=== PATIENT | male | born 1945 | race Caucasian/White ===

== ENCOUNTER 2021-04-01 22:40 | Inpatient (IN) | payer MEDICARE ==
[2021-04-01] MEDS ORDERED: CYCLOBENZAPRINE 10 MG TAB PO STA (23:10)
[2021-04-01] MEDS ORDERED: SODIUM CHLORIDE 0.9% 500 ML 500 ML IV STA (23:10)
[2021-04-01] MEDS ORDERED: DEXAMETHASONE SOD PHOSPHATE 10 MG/ML 1 ML VIAL IV STA (23:12)
[2021-04-01] MEDS ORDERED: FAMOTIDINE 20 MG/2 ML VIAL IV STA (23:12)
--- NOTE | 2021-04-01 23:20 | ED ---
Neck Injury/Pain HPI - General Chief Complaint: Neck Pain/Injury Stated Complaint: Upper back pain Time Seen by Provider: 04/01/21 22:55 Source: patient, family (), RN notes reviewed Mode of arrival: ambulatory Limitations: no limitations - History of Present Illness Initial Comments: 75-year-old pleasant white male presents to the emergency room with his complaining of 2 days of upper back pain between his shoulder blades. Patient states that each of these it to lifting a heavy box a couple of days ago and is any relief the pain started. Patient denies neck pain or numbness and tingling. Patient rates the pain 6 out of 10 and describes it as a tightness. Was unable to sleep tonight's was brought him to the emergency room. Patient's gave him 3 baby aspirin prior to arrival. Patient denies any nausea vomiting or diarrhea. Patient is afebrile. He received his Covid vaccination in December. Patient has a history of hypertension, low back surgery with a right foot drop. Patient states he has a family history of heart disease, his father of a heart attack at age 52 and his siblings all and within that. Patient states his sister also has serious cardiac conditions. Denies any other medical history. MD Complaint: upper back pain (Between shoulder blades) -: days(s) (2) Place: home Severity scale (1-10): 6 Quality: aching, other (Tight) Consistency: constant Improves With: none Worsens With: none Context: other (Was lifting a heavy box 2 days ago when pain started) Associated Symptoms: none Treatments Prior to Arrival: other (scotch and water) - Related Data Allergies Allergy/AdvReac Type Severity Reaction Status Date / Time No Known Allergies Allergy Verified 04/01/21 22:49 Review of Systems ROS Statement: Those systems with pertinent positive or pertinent negative responses have been documented in the HPI. ROS Other: All systems not noted in ROS Statement are negative. Past Medical History Past Medical History: Hyperlipidemia, Hypertension History of Any Multi-Drug Resistant Organisms: None Reported Past Surgical History: Appendectomy, Back Surgery Past Psychological History: No Psychological Hx Reported Smoking Status: Never smoker Past Alcohol Use History: Occasional Past Drug Use History: None Reported General Exam Limitations: no limitations General appearance: alert, in no apparent distress Head exam: Present: atraumatic, normocephalic, normal inspection Eye exam: Present: PERRL, EOMI, conjunctival injection. Absent: periorbital swelling, periorbital tenderness Pupils: Present: normal accommodation ENT exam: Present: normal exam, normal oropharynx, mucous membranes moist Neck exam: Present: normal inspection, full ROM. Absent: tenderness, meningismus, lymphadenopathy, thyromegaly Respiratory exam: Present: normal lung sounds bilaterally. Absent: respiratory distress, wheezes, rales, rhonchi, stridor, decreased breath sounds Cardiovascular Exam: Present: regular rate, normal rhythm, normal heart sounds. Absent: systolic murmur, diastolic murmur, rubs, gallop, clicks, JVD GI/Abdominal exam: Present: soft, normal bowel sounds. Absent: distended, tenderness, guarding, rebound, rigid Extremities exam: Present: normal inspection, full ROM, normal capillary refill, other (Right foot drop, weak flexion). Absent: tenderness, pedal edema, joint swelling, calf tenderness Back exam: Present: normal inspection. Absent: tenderness, CVA tenderness (R), CVA tenderness (L), paraspinal tenderness, vertebral tenderness Neurological exam: Present: alert, oriented X3, CN II-XII intact Psychiatric exam: Present: normal affect, normal mood Skin exam: Present: warm, dry, intact, normal color. Absent: rash Course Vital Signs 04/01/21 04/02/21 22:44 00:57 Temperature 98.1 F Pulse Rate 75 64 Respiratory 20 16 Rate Blood Pressure 107/55 109/61 O2 Sat by Pulse 99 94 L Oximetry - Reevaluation(s) Reevaluation #1: 04/02/21 00:21 Patient states medication has calmed down and his belching, the upper back pain is slightly relieved. But now patient's complaining of chest discomfort and burning. Patient states father at age 52 of a heart attack and his father's siblings of cardiac problems earlier than 50s. Patient states his sister has serious cardiac problems as well. Patient has not had a cardiac workup in several years. Time: 00:21 Reevaluation #2: 04/02/21 01:20 Patient states had complete relief of chest pain after the first nitroglycerin. Patient states that it also resolved his belching. Time: 01:20 Medical Decision Making - Medical Decision Making Chest x-ray negative, patient did get some relief of the upper back pain and belching however has now developed upper chest pain. Patient will be admitted to rule out acute coronary syndrome. Patient has risk factors of family history of early cardiac , states his father at age 52 and his siblings younger than that. Patient also states his sister is cardiac disease. Patient's gave him 3 baby aspirin prior to arrival. - Lab Data Result diagrams: 04/01/21 23:16 04/01/21 23:16 Lab Results 04/01/21 04/01/21 Range/Units 23:16 23:16 WBC 9.1 (3.8-10.6) k/uL RBC 4.49 (4.30-5.90) m/uL Hgb 14.8 (13.0-17.5) gm/dL Hct 43.8 (39.0-53.0) % MCV 97.6 (80.0-100.0) fL MCH 32.9 (25.0-35.0) pg MCHC 33.7 (31.0-37.0) g/dL RDW 12.7 (11.5-15.5) % Plt Count 203 (150-450) k/uL MPV 6.9 Neutrophils % 51 % Lymphocytes % 38 % Monocytes % 7 % Eosinophils % 1 % Basophils % 0 % Neutrophils # 4.7 (1.3-7.7) k/uL Lymphocytes # 3.5 (1.0-4.8) k/uL Monocytes # 0.6 (0-1.0) k/uL Eosinophils # 0.1 (0-0.7) k/uL Basophils # 0.0 (0-0.2) k/uL Sodium 140 (137-145) mmol/L Potassium 3.9 (3.5-5.1) mmol/L Chloride 107 (98-107) mmol/L Carbon Dioxide 21 L (22-30) mmol/L Anion Gap 12 mmol/L BUN 23 H (9-20) mg/dL Creatinine 0.99 (0.66-1.25) mg/dL Est GFR (CKD-EPI)AfAm 85 (>60 ml/min/1.73 sqM) Est GFR (CKD-EPI)NonAf 74 (>60 ml/min/1.73 sqM) Glucose 134 H (74-99) mg/dL Calcium 9.4 (8.4-10.2) mg/dL Total Bilirubin 0.3 (0.2-1.3) mg/dL AST 32 (17-59) U/L ALT 24 (4-49) U/L Alkaline Phosphatase 53 (38-126) U/L C-Reactive Protein 0.6 (<1.0) mg/dL Total Protein 7.0 (6.3-8.2) g/dL Albumin 4.4 (3.5-5.0) g/dL - EKG Data EKG shows normal: sinus rhythm, intervals (Ventricular rate of 74, WV interval of 0.204, QRS of 0.13, QTC of 0.466; there is a right bundle-branch block) When compared to previous EKG there are: previous EKG unavailable Disposition Clinical Impression: Chest pain at rest Clinical Impression: (Ruled Out): Chest pain due to CAD Disposition: ADMITTED IP TO THIS [facility] Condition: Fair Is patient prescribed a controlled substance at d/c from ED?: No Decision Date: 04/02/21 Decision Time: 01:21
[2021-04-01 23:27] LABS: Basophils % (A) 0 %; Eosinophils # (A) 0.1 k/uL (0-0.7); Eosinophils % (A) 1 %; HCT 43.8 % (39.0-53.0); HGB 14.8 gm/dL (13.0-17.5); Lymphocytes # (A) 3.5 k/uL (1.0-4.8); Lymphocytes % (A) 38 %; MCH 32.9 pg (25.0-35.0); MCHC 33.7 g/dL (31.0-37.0); MCV 97.6 fL (80.0-100.0); Mean Platelet Volume 6.9; Monocytes # (A) 0.6 k/uL (0-1.0); Monocytes % (A) 7 %; Neutrophils # (A) 4.7 k/uL (1.3-7.7); Neutrophils % (A) 51 %; Platelet Count 203 k/uL (150-450); RBC 4.49 m/uL (4.30-5.90); RDW 12.7 % (11.5-15.5); WBC 9.1 k/uL (3.8-10.6)
[2021-04-01 23:40] LABS: Albumin 4.4 g/dL (3.5-5.0); C Reactive Protein 0.6 mg/dL (<1.0); Calcium 9.4 mg/dL (8.4-10.2); Potassium 3.9 mmol/L (3.5-5.1); Total Bilirubin 0.3 mg/dL (0.2-1.3)
--- NOTE | 2021-04-02 00:03 | XR ---
EXAMINATION TYPE: XR chest 2V DATE OF EXAM: 04/01/2021 COMPARISON: NONE HISTORY: Pain TECHNIQUE: 2 views FINDINGS: Heart and mediastinum are normal. Lungs are clear of infiltrate. There are chest leads. Bon y thorax is intact. There are no hilar masses. IMPRESSION: Normal chest.
[2021-04-02] MEDS ORDERED: NALOXONE 0.4 MG/ML 1 ML VIAL IV PRN (00:33)
[2021-04-02] MEDS ORDERED: ACETAMINOPHEN TAB 325 MG TAB PO PRN (00:33)
[2021-04-02] MEDS ORDERED: IBUPROFEN 400 MG TAB PO PRN (00:33)
[2021-04-02] MEDS: NITROGLYCERIN SL TABS 0.4 MG TAB SUBLINGUAL PRN ×3 (00:45→06:21)
[2021-04-02] MEDS ORDERED: HEPARIN SOD,PORK IN 0.45% NACL 25,000 UNIT in 0.45% NACL 1 250ML.BAG IV ONE (04:46)
[2021-04-02] MEDS ORDERED: NITROGLYCERIN OINT 1 INCH/GM PACKET TOPICAL STA (04:53)
[2021-04-02] MEDS ORDERED: HEPARIN SOD,PORK IN 0.45% NACL 25,000 UNIT in 0.45% NACL 1 250ML.BAG IV STA (05:12)
[2021-04-02] MEDS: SODIUM CHLORIDE 0.9% 1,000 ML IV SCH ×2 (05:13→14:54)
[2021-04-02] MEDS ORDERED: HEPARIN SODIUM 1,000 UN/ML (10ML VL) IV ONE (05:23)
[2021-04-02] MEDS ORDERED: HEPARIN SODIUM 1,000 UN/ML (10ML VL) IV PRN (05:23)
[2021-04-02] MEDS ORDERED: HEPARIN SOD,PORK IN 0.45% NACL 25,000 UNIT in 0.45% NACL 1 250ML.BAG IV SCH (05:30)
[2021-04-02 05:52] LABS: INR 1.2 (<1.2); Prothrombin Time 12.9 sec (9.0-12.0)
[2021-04-02 06:00] LABS: Partial Thromboplastin Time 17.9 sec (22.0-30.0)
[2021-04-02] MEDS ORDERED: fentaNYL (PF) 50 MCG/ML 2 ML AMP ONE (07:05)
[2021-04-02] MEDS ORDERED: IV FLUID CONTINUATION 900 ML IV ONE (07:06)
[2021-04-02] MEDS ORDERED: ASPIRIN 81 MG PO ONE (07:10)
[2021-04-02] MEDS ORDERED: ASPIRIN 81 MG ONE (07:11)
[2021-04-02] MEDS ORDERED: fentaNYL (PF) 50 MCG/ML 2 ML AMP IVP ONE (07:11)
[2021-04-02] MEDS ORDERED: MIDAZOLAM 2 MG/2 ML VIAL IVP ONE (07:11)
[2021-04-02] MEDS ORDERED: LIDOCAINE 1% INJ 10MG/ML (20 ML MDV) SQ ONE (07:12)
[2021-04-02] MEDS ORDERED: FUROSEMIDE 10 MG/ML 4 ML VIAL ONE (07:24)
[2021-04-02] MEDS ORDERED: FUROSEMIDE 10 MG/ML 4 ML VIAL IVP ONE (07:26)
[2021-04-02] MEDS ORDERED: CLOPIDOGREL 75 MG TAB ONE (07:32)
[2021-04-02] MEDS ORDERED: BIVALIRUDIN BOLUS 250 MG/50 ML IV ONE (07:32)
[2021-04-02] MEDS ORDERED: BIVALIRUDIN 250 MG in SODIUM CHLORIDE 0.9% 50 ML IV ONE (07:33)
[2021-04-02] MEDS ORDERED: CLOPIDOGREL 75 MG TAB PO ONE ×2 (07:33)
[2021-04-02] MEDS ORDERED: niCARdipine 25 MG/10 ML VIAL ONE (07:35)
[2021-04-02] MEDS: NITROGLYCERIN 1000MCG/10ML SYRINGE INTRACORON ONE ×2 (07:41→08:00)
[2021-04-02] MEDS: niCARdipine Syringe (1,000 mcg/10 mL) INTRACORON ONE ×4 (07:41→08:00)
[2021-04-02] MEDS ORDERED: IOPAMIDOL-370 125ML BTL INJ ONE (07:45)
[2021-04-02] MEDS ORDERED: IOPAMIDOL-370 100ML BTL INJ ONE (08:06)
[2021-04-02] MEDS ORDERED: ZOLPIDEM 5 MG TAB PO PRN (08:08)
[2021-04-02] MEDS ORDERED: RX INFO: IV CONTRAST WAS GIVEN 1 EACH MISC MISCELLANE PRN (08:08)
[2021-04-02] MEDS ORDERED: NITROGLYCERIN SL TABS 0.4 MG TAB SUBLINGUAL PRN (08:08)
[2021-04-02] MEDS ORDERED: MAG HYDROX/AL HYDROX/SIMETH 30 ML CUP PO PRN (08:08)
[2021-04-02] MEDS ORDERED: ATROPINE SULFATE 0.1 MG/ML 10ML SYRINGE IV PRN (08:08)
[2021-04-02] MEDS ORDERED: SODIUM CHLORIDE 0.9% 1,000 ML IV SCH (08:15)
--- NOTE | 2021-04-02 08:23 | CONS ---
CONSULTATION CHIEF COMPLAINT: Chest pain. This is a 75-year-old gentleman with history of hypertension and dyslipidemia who presented to the hospital complaining of chest pain. He had the first episode of chest discomfort on that he describes as moderate precordial chest pressure and subsequently the pain resolved on Friday and had more chest pain on Friday, Friday due to he came to the hospital around 11 o'clock last night. He was admitted with diagnosis of chest pain. Rule out GA. His first troponin was slightly elevated at 0.04. I was called about the patient by ER nurse around 5 o'clock this morning when the second troponin came back elevated at 0.9 and he had more chest pain. The patient was not on any treatment at this time. I started him on IV heparin, nitrates, beta danielle. Subsequently, patient was transferred to floor, developed more chest discomfort and had ST-elevation on en ekg done on the floor around 6 am due to which he was advised to undergo emergent cardiac catheterization. His first EKG showed sinus rhythm with right bundle branch block. EKG from this morning shows right bundle branch block with ST- segment elevation in V2, V3. The patient at the time of my evaluation is chest pain free. His pain resolved following 2 sublingual nitroglycerin. PAST MEDICAL HISTORY: Significant for hypertension and dyslipidemia. CURRENT MEDICATIONS: Include Procardia 50 daily and Lipitor 10 daily. ALLERGIES: There are no known drug allergies. FAMILY HISTORY: Negative for premature coronary artery disease. SOCIAL HISTORY: Negative for smoking, EtOH abuse, or drug abuse. REVIEW OF SYSTEMS: HEENT is unremarkable. CARDIAC: As described above. RESPIRATORY: As described above. GI: Negative. GENITOURINARY: Negative. ALLERGY/IMMUNOLOGY: Negative. SKIN: Negative. MUSCULOSKELETAL: Negative. ENDOCRINE: Negative. DERM: Negative. CONSTITUTIONAL: Negative. ONCOLOGICAL: Negative. Rest of the system review is not relevant. PHYSICAL EXAMINATION: Heart rate is 90 beats per minute. Blood pressure is 130/70. Respiratory is 18. There is no jugular venous distention. Carotid upstroke is diminished. There is no bruit. Chest exam reveals good air entry bilaterally. Heart exam reveals first and second heart sounds. No gallop. Abdomen is soft. Examination of extremities did not reveal any edema. O2 saturation is 96% on 2 L. LABS: Labs show that the troponin is 0.9, creatinine is 0.9, hemoglobin is 14.8. ASSESSMENT: Acute anterior wall myocardial infarction. PLAN: Patient will undergo emergent cardiac catheterization. MMODL / IJN: [id number] / MTDD
--- NOTE | 2021-04-02 08:26 | CC ---
CARDIAC CATHETERIZATION REPORT INDICATION: Acute anterior wall myocardial infarction. After obtaining informed consent, left heart catheterization and coronary angiogram were performed via the right femoral artery using standard Ailin catheters. Patient tolerated the procedure well without any obvious immediate complications. Patient received moderate conscious sedation. Total sedation time was 16 minutes. FINDINGS: 1. HEMODYNAMICS: Left ventricular end-diastolic pressure is 24 mm. There is no significant gradient across the aortic valve. 2. LEFT VENTRICULOGRAM: Left ventriculogram is not performed. 3. ANGIOGRAPHIC DATA: Left Main Coronary Artery: Left main coronary artery is a normal-sized vessel and is free of stenosis. Divides into left anterior descending coronary artery and circumflex coronary artery. LAD appears totally occluded in the proximal part. Circumflex coronary artery and its branches are free of significant stenosis. Right coronary artery is a large dominant vessel, shows an atherosclerotic plaque in the proximal portion. CONCLUSIONS: Occluded proximal LAD. PLAN: Patient will undergo angioplasty of the same. MMODL / IJN: [id number] /
--- NOTE | 2021-04-02 08:32 | PTCA ---
PERCUTANEOUSTRANS CORORONARY ANGIOGRAPHY DATE OF SERVICE: April 02, 2021. PERFORMING PHYSICIAN: Luther Stark MD. PROCEDURE PERFORMED: 1. Successful stenting of the proximal left anterior descending artery using a 3.0 x 23 mm Xience drug-eluting stent which was post-dilated using 3.5 mm NC balloon with reduction of stenosis from 100% to 0% with ANNALISE 2 flow. 2. Successful stenting of the mid left anterior descending artery using 2.75 x 12 mm Xience drug-eluting stent with reduction of stenosis from 70% to 0% with ANNALISE 2 flow. 3. Selective right common femoral artery angiogram. 4. Aspiration thrombectomy from the left anterior descending artery. INDICATION: This is a 75-year-old gentleman who presented to the hospital with chest discomfort and was seen by Dr. Orellana. He ruled in for acute coronary syndrome. A heart catheterization was performed by Dr. Orellana and revealed total occlusion of the LAD. Because of that, PCI was advised. APPROACH: Right common femoral artery. COMPLICATION: None. LEVEL OF SEDATION: Moderate with sedation length of 35 minutes. PROCEDURE DESCRIPTION: Please refer to diagnostic heart catheterization was performed by Dr. Orellana earlier today. Anticoagulation was achieved with Angiomax with bolus and drip. After that, I did engage the left main using JL4 guide. I did wire the LAD and crossed the lesion using a run-through wire. After that aspiration thrombectomy was performed with extraction of significant red thrombus. After that I did balloon angioplasty using 2.5 x 15 mm balloon before I deployed 3.0 x 23 mm Xience drug-eluting stent. The following angiogram showed a lesion distal to the stented segment right on the stent edge and decided to cover that lesion, so I did stent that using 2.75 x 12 mm another Xience drug-eluting stent with about 2 mm overlap between the 2 stents. I post-dilated the stents proximally using 3.5 mm NC balloon. The final angiogram showed good angiographic results with reduction of stenosis from 100% to 0% with ANNALISE 2 flow and no myocardial blush seen. I gave multiple injection of nicardipine. After that I did selective right common femoral artery angiogram before the procedure was completed. POSTPROCEDURE MANAGEMENT: 1. Dual anti-platelet therapy. 2. Aggressive cholesterol control. 3. Risk factor modifications. 4. Follow up with the patient. MMODL / IJN: [id number] /
[2021-04-02 14:01] VITALS: BMI 31.6
[2021-04-02] MEDS: METOPROLOL TARTRATE 25 MG TAB PO SCH (14:54)
--- NOTE | 2021-04-02 15:58 | P.HPIM ---
History of Present Illness H&P Date: 04/02/21 Chief Complaint: Chest pain History of presenting complaint: This is a 75-year-old patient who follows with Dr. Hanks. For about 6 days patient been having progressive chest pain. Started on last Friday with some mild pain across the shoulder blade. Then on Fridays it was much worse. Does not associated dizziness lightheadedness perspiration tiredness and nausea. P atient is having significant amount of belching. Symptoms became much more significant yesterday and finally landed the patient coming to the ER. Patient does get leg cramps. 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 In the ER patient ruled in for an acute MD, to go to the cardiac dental laboratory assistant and patient got 2 stents to the LAD. Patient's at the bedside. Review of systems: GEN.: Tired EYES: None HEENT: None NECK: None RESPIRATORY: None CARDIOVASCULAR: As above GASTROINTESTINAL: None GENITOURINARY: None MUSCULOSKELETAL: None LYMPHATICS: None HEMATOLOGICAL: None PSYCHIATRY: None NEUROLOGICAL: None. 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 Family history: Myocardial infarction Physical examination: VITAL SIGNS: 99.1, 90, 18, 140/62, 97% on room air GENERAL: BMI 31.6, sitting up in bed, awake. EYES: Pupils equal. Conjunctiva normal. HEENT: External appearance of nose and ears normal, oral cavity grossly normal. NECK: JVD not raised; masses not palpable. HEART: First and second heart sounds are normal; no edema. LUNGS: Respiratory rate normal; clear to auscultation. ABDOMEN: Soft, nontender, liver spleen not palpable, no masses palpable. PSYCH: Alert and oriented x3; mood and affect normal. NEUROLOGICAL: Cranial nerves grossly intact; no facial asymmetry, power and sensation grossly intact. LYMPHATICS: No lymph nodes palpable in the axilla and neck INVESTIGATIONS, reviewed in the clinical context: WBC 9.1 hemoglobin 14.8 platelets 203 potassium 3.9 creatinine 0.99 Troponin I 0.040, 0.917, 8.0 Coronavirus [PCR]-not detected EKG tracing personally reviewed by me-normal sinus rhythm, right bundle branch block Chest x-ray film personally reviewed by me-no infiltrates Assessment and plan: -Acute non-Q wave myocardial infarction Patient was initially started on aspirin, IV heparin and Nitropaste -Coronary artery disease, with stent to the proximal LAD, mid LAD and aspiration thrombectomy from the left LAD Patient on aspirin, Lipitor, Plavix, Lopressor -Essential hypertension On Lopressor -Hyperlipidemia On Lipitor. Pending lipid panel -IV heparin monitoring Now discontinued -Obesity BMI 31.6 Weight loss measures, follow-up with PCP Care was discussed with the patient and at the bedside. Follow with cardiology Given the complexity and severity of patient's condition expect the patient to be in the hospital at least for 2 overnights Past Medical History Past Medical History: Hyperlipidemia, Hypertension History of Any Multi-Drug Resistant Organisms: None Reported Past Surgical History: Appendectomy, Back Surgery Past Psychological History: No Psychological Hx Reported Smoking Status: Never smoker Past Alcohol Use History: Occasional Past Drug Use History: None Reported - Past Family History Father Family Medical History: Myocardial Infarction (MD) Medications and Allergies Home Medications Medication Instructions Recorded Confirmed Type Atorvastatin [Lipitor] 10 mg PO DAILY 04/02/21 04/02/21 History Cholecalciferol [Vitamin D3 (25 50 mcg PO DAILY 04/02/21 04/02/21 History Mcg = 1000 Iu)] Cider Vinegar [Apple Cider Vinegar] 600 mg PO DAILY 04/02/21 04/02/21 History NIFEdipine XL [Procardia Xl] 30 mg PO DAILY 04/02/21 04/02/21 History Allergies Allergy/AdvReac Type Severity Reaction Status Date / Time No Known Allergies Allergy Verified 04/02/21 06:55 Physical Exam Vitals: Vital Signs Temp Pulse Pulse Resp BP BP Pulse Ox 04/02/21 15:00 98.6 F 90 16 132/78 95 04/02/21 11:54 98.8 F 93 22 116/69 93 L 04/02/21 10:54 90 129/71 93 L 04/02/21 09:54 88 22 134/72 95 04/02/21 09:24 95 139/73 04/02/21 08:54 93 22 120/64 95 04/02/21 08:24 99.1 F 90 18 140/62 97 04/02/21 05:13 93 20 130/72 96 04/02/21 04:24 93 18 118/73 98 04/02/21 00:57 64 16 109/61 94 L 04/01/21 22:44 98.1 F 75 20 107/55 99 Intake and Output 04/02/21 04/02/21 04/02/21 06:59 14:59 22:59 Intake Total 525 Output Total 450 Balance 75 Intake: IV 285 Oral 240 Output: Urine 450 Other: Weight 86.183 kg 86.183 kg Results CBC & Chem 7: 04/01/21 23:16 04/01/21 23:16 Labs: Abnormal Lab Results - Last 24 Hours (Table) 04/01/21 04/02/21 04/02/21 Range/Units 23:16 00:24 03:08 PT (9.0-12.0) sec INR (<1.2) APTT (22.0-30.0) sec Carbon Dioxide 21 L (22-30) mmol/L BUN 23 H (9-20) mg/dL Glucose 134 H (74-99) mg/dL Troponin I 0.040 H* 0.917 H* (0.000-0.034) ng/mL 04/02/21 04/02/21 Range/Units 04:55 06:31 PT 12.9 H (9.0-12.0) sec INR 1.2 H (<1.2) APTT 17.9 L (22.0-30.0) sec Carbon Dioxide (22-30) mmol/L BUN (9-20) mg/dL Glucose (74-99) mg/dL Troponin I 8.040 H* (0.000-0.034) ng/mL Thrombosis Risk Factor Assmnt - Choose All That Apply Each Factor Represents 1 point: Obesity (BMI >25), Swollen legs (current) Each Risk Factor Represents 3 Points: Age 75 years or older Thrombosis Risk Factor Assessment Total Risk Factor Score: 5 Thrombosis Risk Factor Assessment Level: High Risk
[2021-04-02] MEDS: ATORVASTATIN 80 MG TAB PO SCH (20:06)
[2021-04-03 08:03] LABS: Basophils % (A) 0 %; Eosinophils % (A) 0 %; HCT 41.9 % (39.0-53.0); HGB 14.4 gm/dL (13.0-17.5); Lymphocytes # (A) 1.9 k/uL (1.0-4.8); Lymphocytes % (A) 12 %; MCH 33.8 pg (25.0-35.0); MCHC 34.5 g/dL (31.0-37.0); Mean Platelet Volume 7.2; Monocytes # (A) 0.8 k/uL (0-1.0); Monocytes % (A) 5 %; Neutrophils % (A) 82 %; Platelet Count 200 k/uL (150-450); RBC 4.27 m/uL (4.30-5.90); WBC 15.8 k/uL (3.8-10.6)
[2021-04-03 08:09] LABS: African American GFR (CKD) >90 (>60 ml/min/1.73 sqM); Non-African American GFR(CKD) 83 (>60 ml/min/1.73 sqM)
[2021-04-03 08:22] LABS: Prothrombin Time 10.8 sec (9.0-12.0)
[2021-04-03] MEDS: METOPROLOL TARTRATE 25 MG TAB PO SCH (08:37)
[2021-04-03] MEDS: CLOPIDOGREL 75 MG TAB PO SCH (08:38)
[2021-04-03] MEDS: ASPIRIN 81 MG PO SCH (08:38)
[2021-04-03] MEDS: SODIUM CHLORIDE 0.9% 1,000 ML IV SCH (11:22)
--- NOTE | 2021-04-03 12:29 | P.PN ---
Subjective Progress Note Date: 04/03/21 HISTORY OF PRESENT ILLNESS: This is a 75-year-old male with a history of hypertension and hyperlipidemia who presented to the emergency room due to chest pain. Patient underwent cardiac catheterization yesterday with PCI to the LAD 2. Patient examined this morning on the selective care unit. Patient is sitting up in the chair. He denies shortness of breath. He denies chest pain or pressure. Echocardiogram is currently pending. Blood pressure 126/74. Heart rate in the 80s. He is afebrile. He is on room air with oxygen saturations greater than 92%. PHYSICAL EXAM: VITAL SIGNS: Reviewed. GENERAL: Well-developed in no acute distress. NECK: Supple. No JVD or thyromegaly LUNGS: Respirations even and unlabored. Lungs essentially clear to auscultation bilaterally. HEART: Regular rate and rhythm. S1 and S2 heard. EXTREMITIES: Normal range of motion. No clubbing or cyanosis. Peripheral pulses intact. No lower extremity edema. Groin soft with no hematoma. ASSESSMENT: STEMI, s/p PCI to LAD x 2 Hypertension Hyperlipidemia PLAN: 2D echo ordered. Await results. Continue current cardiac medications including aspirin, plavix, metoprolol, and lipitor Further recommendations pending patient course Nurse practitioner note has been reviewed by physician. Signing provider agrees with the documented findings, assessment, and plan of care. Objective - Vital Signs Vital signs: Vital Signs Temp 98.9 F 04/03/21 08:00 Pulse 82 04/03/21 08:00 Resp 18 04/03/21 08:00 BP 126/74 04/03/21 08:00 Pulse Ox 97 04/03/21 08:00 Intake & Output 04/02/21 04/03/21 04/03/21 18:59 06:59 18:59 Intake Total 625 960 240 Output Total 1050 Balance -425 960 240 Weight 86.183 kg 87.9 kg Intake: IV 285 Oral 340 960 240 Output: Urine 1050 Other: Voiding Method Toilet Urinal # Voids 1 2 - Labs CBC & Chem 7: 04/03/21 07:09 04/03/21 07:09 Labs: Abnormal Lab Results - Last 24 Hours (Table) 04/03/21 Range/Units 07:09 WBC 15.8 H (3.8-10.6) k/uL RBC 4.27 L (4.30-5.90) m/uL Neutrophils # 13.0 H (1.3-7.7) k/uL
[2021-04-03 15:00] LABS: Chol/HDL Ratio 2.61; Cholesterol 162 mg/dL (0-200); LDL Cholesterol,Calculated 79.4 mg/dL (0.0-131.0)
--- NOTE | 2021-04-03 15:46 | P.PN ---
Progress Note - Text Progress Note Date: 04/03/21 Chief Complaint: Chest pain History of presenting complaint: This is a 75-year-old patient who follows with Dr. Hanks. For about 6 days patient been having progressive chest pain. Started on last Friday with some mild pain across the shoulder blade. Then on Fridays it was much worse. Does not associated dizziness lightheadedness perspiration tiredness and nausea. Patient is having significant amount of belching. Symptoms became much more significant yesterday and finally landed the patient coming to the ER. Patient does get leg cramps. 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 In the ER patient ruled in for an acute HI, to go to the cardiac specialist employee labor relations and patient got 2 stents to the LAD. Today: Sitting up in a chair. Has been up to the bathroom. No guarding symptoms. Breathing better. No chest pain. Feeling better. Review of systems: Was done for constitutional, cardiovascular, GI, pulmonary. relevant finding as above Active Medications Acetaminophen (Acetaminophen Tab 325 Mg Tab) 650 mg PO Q6HR PRN PRN Reason: Mild Pain or Fever > 100.5 Al Hydroxide/Mg Hydroxide (Mag Hydrox/Al Hydrox/Simeth 30 Ml Cup) 30 ml PO Q4HR PRN PRN Reason: Heartburn Last Admin: 04/02/21 20:06 Dose: 30 ml Documented by: Aspirin (Aspirin 81 Mg) 81 mg PO DAILY [facility] Last Admin: 04/03/21 08:38 Dose: 81 mg Documented by: Atorvastatin Calcium (Atorvastatin 80 Mg Tab) 80 mg PO HS [facility] Last Admin: 04/02/21 20:06 Dose: 80 mg Documented by: Atropine Sulfate (Atropine Sulfate 0.1 Mg/Ml 10ml Syringe) 0.5 mg IV ONCE PRN PRN Reason: Symptomatic Bradycardia Clopidogrel Bisulfate (Clopidogrel 75 Mg Tab) 75 mg PO DAILY [facility] Last Admin: 04/03/21 08:38 Dose: 75 mg Documented by: Sodium Chloride (Saline 0.9%) 1,000 mls @ 75 mls/hr IV .[id number] [facility] Last Admin: 04/03/21 11:22 Dose: Not Given Documented by: Metoprolol Tartrate (Metoprolol Tartrate 25 Mg Tab) 25 mg PO DAILY [facility] Last Admin: 04/03/21 08:37 Dose: 25 mg Documented by: Miscellaneous Information (Rx Info: Iv Contrast Was Given 1 Each Misc) 1 each MISCELLANE DAILY PRN PRN Reason: Per Protocol Stop: 04/04/21 08:09 Naloxone HCl (Naloxone 0.4 Mg/Ml 1 Ml Vial) 0.2 mg IV Q2M PRN PRN Reason: Opioid Reversal Nitroglycerin (Nitroglycerin Sl Tabs 0.4 Mg Tab) 0.4 mg SUBLINGUAL Q5M PRN PRN Reason: Chest Pain Last Admin: 04/02/21 06:21 Dose: 0.4 mg Documented by: Zolpidem Tartrate (Zolpidem 5 Mg Tab) 5 mg PO HS PRN PRN Reason: Insomnia 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 Family history: Myocardial infarction Physical examination: VITAL SIGNS: 98.9, 80, 18, 109/66, 95% room air GENERAL: Sitting up in a chair, comfortable EYES: Pupils equal. Conjunctiva normal. HEENT: External appearance of nose and ears normal, oral cavity grossly normal. NECK: JVD not raised; masses not palpable. HEART: First and second heart sounds are normal; no edema. LUNGS: Respiratory rate normal; clear to auscultation. ABDOMEN: Soft, nontender, liver spleen not palpable, no masses palpable. PSYCH: Alert and oriented x3; mood and affect normal. INVESTIGATIONS, reviewed in the clinical context: April 03: WBC 15.8 hemoglobin 14.4 platelets 200 LDL 79 WBC 9.1 hemoglobin 14.8 platelets 203 potassium 3.9 creatinine 0.99 Troponin I 0.040, 0.917, 8.0 Coronavirus [PCR]-not detected EKG tracing personally reviewed by me-normal sinus rhythm, right bundle branch block Chest x-ray film personally reviewed by me-no infiltrates Assessment and plan: -Acute non-Q wave myocardial infarction Patient was initially started on aspirin, IV heparin and Nitropaste -Coronary artery disease, with stent to the proximal LAD, mid LAD and aspiration thrombectomy from the left LAD Patient on aspirin, Lipitor, Plavix, Lopressor -Essential hypertension On Lopressor -Hyperlipidemia On Lipitor. Pending lipid panel -IV heparin monitoring Now discontinued -Obesity BMI 31.6 Weight loss measures, follow-up with PCP Doing better. Encourage increase activity. DC IV fluids. Add Zestril 2.5 mg daily at bedtime. Hopefully DC tomorrow
[2021-04-03] MEDS: ATORVASTATIN 80 MG TAB PO SCH (19:59)
[2021-04-03 21:04] VITALS: RESP 18
[2021-04-04 08:29] VITALS: BP 106/63; PULSE 82; TEMP 98.5
[2021-04-04] MEDS: CLOPIDOGREL 75 MG TAB PO SCH (08:30)
[2021-04-04] MEDS: ASPIRIN 81 MG PO SCH (08:30)
[2021-04-04] MEDS ORDERED: METOPROLOL TARTRATE 12.5 MG TAB PO SCH (09:00)
--- NOTE | 2021-04-04 10:25 | ECHOF ---
Referral Reason:CA MEASUREMENTS -------- HEIGHT: 165.1 cm WEIGHT: 86.2 kg BP: 116/69 IVSd: 1.3 cm (0.6 - 1.1) LVIDd: 4.6 cm (3.9 - 5.3) LVPWd: 1.3 cm (0.6 - 1.1) EDV(Teich): 96 ml IVSs: 1.7 cm LVIDs: 3.7 cm LVPWs: 1.6 cm %IVS Thck: 32 % ESV(Teich): 60 ml EF(Teich): 38 % %FS: 18 % SV(Teich): 36 ml LA Diam: 3.5 cm (2.7 - 3.8) RVIDd: 3.1 cm (< 3.3) LALs A4C: 4.9 cm LAAs A4C: 13.7 cm LAESV A-L A4C: 33 ml LAESV MOD A4C: 31 ml LALs A2C: 5.0 cm LAAs A2C: 12.5 cm LAESV A-L A2C: 26 ml LAESV MOD A2C: 25 ml LAESV(A-L): 30 ml LAESV Index (A-L): 15.31 ml/m Ao Diam: 3.3 cm (2.0 - 3.7) AV Cusp: 1.8 cm (1.5 - 2.6) EPSS: 1.6 cm MV E Antonio: 0.77 m/s MV DecT: 189 ms MV Dec Hernando: 4.1 m/s MV A Antonio: 1.01 m/s MV E/A Ratio: 0.77 MV PHT: 55 ms AV Vmax: 1.50 m/s AV maxP.98 mmHg TR Vmax: 2.81 m/s TR maxP.55 mmHg RAP: 5.00 mmHg RVSP: 36.55 mmHg MV EF SLOPE: 32.60 mm/s (70 - 150) MV EXCURSION: 8.33 mm (> 18.000) FINDINGS -------- Sinus rhythm. This was a technically difficult study with suboptimal apical views. The left ventricular size is normal. There is mild concentric left ventricular hypertrophy. Overa ll left ventricular systolic function is moderate-severely impaired with, an EF between 30 - 35 %. Apical anterior LV wall motion is akinetic. Apical lateral LV wall motion is akinetic. Apical i nferior LV wall motion is akinetic. Apical septum LV wall motion is akinetic. The right ventricle is normal in size. Normal LA size by volume 22+/-6 ml/m2. The right atrium is normal in size. 3 ml of Lumason was utilized for enhancement of images. Interatrial and interventricular septum intact. There is mild aortic valve sclerosis. Mild mitral regurgitation is present. Mild tricuspid regurgitation present. There is mild pulmonary hypertension. The right ventricular systolic pressure, as measured by Doppler, is 36.55mmHg. The pulmonic valve is normal. The aortic root size is normal. Normal inferior vena cava with normal inspiratory collapse consistent with estimated right atrial pre ssure of 5 mmHg. There is no pericardial effusion. CONCLUSIONS -------- 1. This was a technically difficult study with suboptimal apical views. 2. The left ventricular size is normal. 3. There is mild concentric left ventricular hypertrophy. 4. Overall left ventricular systolic function is moderate-severely impaired with, an EF between 30 - 35 %. 5. Apical anterior LV wall motion is akinetic. 6. Apical lateral LV wall motion is akinetic. 7. Apical inferior LV wall motion is akinetic. 8. Apical septum LV wall motion is akinetic. 9. 3 ml of Lumason was utilized for enhancement of images. 10. There is mild aortic valve sclerosis. 11. Mild mitral regurgitation is present. 12. Mild tricuspid regurgitation present. 13. There is mild pulmonary hypertension. 14. The right ventricular systolic pressure, as measured by Doppler, is 36.55mmHg. 15. There is no pericardial effusion. DAY CARE WORKER: Millie Pires RDCS
--- NOTE | 2021-04-04 10:51 | P.PN ---
Subjective Progress Note Date: 04/04/21 HISTORY OF PRESENT ILLNESS: This is a 75-year-old male with a history of hypertension and hyperlipidemia who presented to the emergency room due to chest pain. Patient underwent cardiac catheterization yesterday with PCI to the LAD 2. Patient examined this morning on the selective care unit. Patient is sitting up in the chair. He denies shortness of breath. He denies chest pain or pressure. Echocardiogram is currently pending. Blood pressure 126/74. Heart rate in the 80s. He is afebrile. He is on room air with oxygen saturations greater than 92%. 04/04/2021 Patient examined this morning at the bedside. Patient denies chest pain or pressure. He denies shortness of breath. Vital signs are stable. Patient is anxious to be discharged home as he has chronic back pain and states the bed and chair are making his back pain worse than normal. Echocardiogram completed revealed ejection fraction 30-35%, mild mitral regurgitation, mild tricuspid regurgitation, and mild pulmonary hypertension. PHYSICAL EXAM: VITAL SIGNS: Reviewed. GENERAL: Well-developed in no acute distress. NECK: Supple. No JVD or thyromegaly LUNGS: Respirations even and unlabored. Lungs essentially clear to auscultation bilaterally. HEART: Regular rate and rhythm. S1 and S2 heard. EXTREMITIES: Normal range of motion. No clubbing or cyanosis. Peripheral pulses intact. No lower extremity edema. Groin soft with no hematoma. ASSESSMENT: STEMI, s/p PCI to LAD x 2 Ischemic cardiomyopathy Hypertension Hyperlipidemia PLAN: Continue current cardiac medications including aspirin, plavix, metoprolol, and lipitor Lisinopril added on to patient's medication regimen. Agreeable to lisinopril due to cardiomyopathy Patient is stable for discharge home today from a cardiac standpoint. He is to follow up on an outpatient basis with Dr. Orellana. Nurse practitioner note has been reviewed by physician. Signing provider agrees with the documented findings, assessment, and plan of care. Objective - Vital Signs Vital signs: Vital Signs Temp 98.5 F 04/04/21 08:26 Pulse 82 04/04/21 08:26 Resp 18 04/04/21 08:26 BP 106/63 04/04/21 08:26 Pulse Ox 95 04/04/21 08:26 Intake & Output 04/03/21 04/04/21 04/04/21 18:59 06:59 18:59 Intake Total 440 960 236 Balance 440 960 236 Weight 89 kg Intake: Oral 440 960 236 Other: Voiding Method Toilet Urinal # Voids 2 1 - Labs CBC & Chem 7: 04/03/21 07:09 04/03/21 07:09 Labs: Abnormal Lab Results - Last 24 Hours (Table) 04/03/21 Range/Units 07:09 HDL Cholesterol 62.0 H (40.0-60.0) mg/dL
--- NOTE | 2021-04-05 21:14 | P.DS ---
Providers Date of admission: 04/02/21 10:17 Expected date of discharge: 04/04/21 Attending physician: Julian Boykin Consults: 04/02/21 00:35 Consult Physician Urgent Consulting Provider: Luther Stark Consult Reason/Comments: chest pain r/o ACS Do you want consulting provider notified?: Yes 04/02/21 08:09 Consult Physician Routine Consulting Provider: Cardiology Lizzy Consult Reason/Comments: Post Interventional patient Do you want consulting provider notified?: Already Contacted Primary care physician: [facility] Course: Chief Complaint: Chest pain History of presenting complaint: This is a 75-year-old patient who follows with Dr. Hanks. For about 6 days patient been having progressive chest pain. Started on last Friday with some mild pain across the shoulder blade. Then on Fridays it was much worse. Does not associated dizziness lightheadedness perspiration tiredness and nausea. Patient is having significant amount of belching. Symptoms became much more significant yesterday and finally landed the patient coming to the ER. Patient does get leg cramps. 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 In the ER patient ruled in for an acute DC, to go to the cardiac laboratory phlebotomist and patient got 2 stents to the LAD. Today: Up and about. No cardiac symptoms. Feeling well. Cleared by cardiac G for discharge. Questions answered Consultation: Cardiology associates. 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 Family history: Myocardial infarction Physical examination: VITAL SIGNS: 98.5, 82, 18, 106/63, 95% room air GENERAL: Sitting up in a chair, comfortable EYES: Pupils equal. Conjunctiva normal. HEENT: External appearance of nose and ears normal, oral cavity grossly normal. NECK: JVD not raised; masses not palpable. HEART: First and second heart sounds are normal; no edema. LUNGS: Respiratory rate normal; clear to auscultation. ABDOMEN: Soft, nontender, liver spleen not palpable, no masses palpable. PSYCH: Alert and oriented x3; mood and affect normal. INVESTIGATIONS, reviewed in the clinical context: April 03: WBC 15.8 hemoglobin 14.4 platelets 200 LDL 79 WBC 9.1 hemoglobin 14.8 platelets 203 potassium 3.9 creatinine 0.99 Troponin I 0.040, 0.917, 8.0 Coronavirus [PCR]-not detected EKG tracing personally reviewed by me-normal sinus rhythm, right bundle branch block Chest x-ray film personally reviewed by me-no infiltrates Assessment and plan: -Acute non-Q wave myocardial infarction Patient was initially started on aspirin, IV heparin and Nitropaste -Coronary artery disease, with stent to the proximal LAD, mid LAD and aspiration thrombectomy from the left LAD Patient on aspirin, Lipitor, Plavix, Lopressor -Essential hypertension On Lopressor -Hyperlipidemia On Lipitor. Pending lipid panel -IV heparin monitoring Now discontinued -Obesity BMI 31.6 Weight loss measures, follow-up with PCP Disposition: Home Patient Condition at Discharge: Fair Plan - Discharge Summary New Discharge Prescriptions: New Atorvastatin [Lipitor] 80 mg PO HS #90 tab Metoprolol Tartrate [Lopressor] 12.5 mg PO BID #180 tab Clopidogrel [Plavix] 75 mg PO DAILY #90 tab lisinopriL [Zestril] 2.5 mg PO HS #90 tab Aspirin 81 mg PO DAILY #90 chew Nitroglycerin Sl Tabs [Nitrostat] 0.4 mg SUBLINGUAL Q5M PRN #1 bottle PRN Reason: Chest Pain Continue Cider Vinegar [Apple Cider Vinegar] 600 mg PO DAILY Cholecalciferol [Vitamin D3 (25 Mcg = 1000 Iu)] 50 mcg PO DAILY Discontinued Atorvastatin [Lipitor] 10 mg PO DAILY NIFEdipine XL [Procardia Xl] 30 mg PO DAILY Discharge Medication List Cholecalciferol [Vitamin D3 (25 Mcg = 1000 Iu)] 50 mcg PO DAILY 04/02/21 [History] Cider Vinegar [Apple Cider Vinegar] 600 mg PO DAILY 04/02/21 [History] Aspirin 81 mg PO DAILY #90 chew 04/04/21 [Rx] Atorvastatin [Lipitor] 80 mg PO HS #90 tab 04/04/21 [Rx] Clopidogrel [Plavix] 75 mg PO DAILY #90 tab 04/04/21 [Rx] Metoprolol Tartrate [Lopressor] 12.5 mg PO BID #180 tab 04/04/21 [Rx] Nitroglycerin Sl Tabs [Nitrostat] 0.4 mg SUBLINGUAL Q5M PRN #1 bottle 04/04/21 [Rx] lisinopriL [Zestril] 2.5 mg PO HS #90 tab 04/04/21 [Rx] Follow up Appointment(s)/Referral(s): Flex Hanks DO [Primary Care Provider] - 04/06/21 2:20 pm Refugio Orellana MD [STAFF PHYSICIAN] - 1 Week (office will call with follow up appointment date and time within 1 week) Patient Instructions/Handouts: Left Heart Catheterization (DC) Discharge Disposition: HOME SELF-CARE
== END 2021-04-04 12:56 | disposition home or self-care (01) | DRG 247 ==
LOC: EC 22:40 → 6NMEDSUR 04-02 00:30 → 3SCARD 04-02 05:07 → OBSVTOIN 04-02 10:17
PROVIDERS: ADMIT Hospitalist; ATTEND Hospitalist
PROC: 02C03ZZ Extirpation of Matter from Coronary Artery, One Artery, Percutaneous Approach (ICD-10-PCS; 2021-04-02)
PROC: 027035Z Dilation of Coronary Artery, One Artery with Two Drug-eluting Intraluminal Devices, Percutaneous Approach (ICD-10-PCS; principal; 2021-04-02 17:00)
PROC: B2111ZZ Fluoroscopy of Multiple Coronary Arteries using Low Osmolar Contrast (ICD-10-PCS; 2021-04-02 17:00)
PROC: 4A023N7 Measurement of Cardiac Sampling and Pressure, Left Heart, Percutaneous Approach (ICD-10-PCS; 2021-04-02 17:00)
DX: I21.4 Non-ST elevation (NSTEMI) myocardial infarction (principal); I25.10 Atherosclerotic heart disease of native coronary artery without angina pectoris; I25.5 Ischemic cardiomyopathy; I27.20 Pulmonary hypertension, unspecified; E66.9 Obesity, unspecified; E78.5 Hyperlipidemia, unspecified; G89.29 Other chronic pain; I10 Essential (primary) hypertension; I21.09 ST elevation (STEMI) myocardial infarction involving other coronary artery of anterior wall; M21.371 Foot drop, right foot; I45.10 Unspecified right bundle-branch block; X50.0XXA Overexertion from strenuous movement or load, initial encounter; Z68.31 Body mass index [BMI] 31.0-31.9, adult; Z20.822 Contact with and (suspected) exposure to COVID-19; Z79.899 Other long term (current) drug therapy; Z82.49 Family history of ischemic heart disease and other diseases of the circulatory system; Z98.890 Other specified postprocedural states; Z90.49 Acquired absence of other specified parts of digestive tract
CPT/HCPCS: 36415; 71046; 80053; 80061; 82565; 84484; 85025; 85610; 85730; 86140; 87635; 93005; 93306; 94760; 96361; 96374; 96375; 99285

== ENCOUNTER 2021-08-12 05:34 | Observation (INO) | payer MEDICARE ==
[2021-08-12] MEDS ORDERED: SODIUM CHLORIDE 0.9% 1,000 ML IV STA (06:00)
[2021-08-12] MEDS ORDERED: MECLIZINE 12.5 MG TAB PO STA (06:12)
[2021-08-12 06:23] LABS: Basophils % (A) 1 %; Eosinophils # (A) 0.1 k/uL (0-0.7); Eosinophils % (A) 1 %; HGB 13.9 gm/dL (13.0-17.5); Lymphocytes # (A) 1.9 k/uL (1.0-4.8); Lymphocytes % (A) 24 %; MCH 31.8 pg (25.0-35.0); MCHC 33.1 g/dL (31.0-37.0); Mean Platelet Volume 7.5; Monocytes # (A) 0.4 k/uL (0-1.0); Monocytes % (A) 5 %; Neutrophils # (A) 5.3 k/uL (1.3-7.7); Neutrophils % (A) 67 %; Platelet Count 175 k/uL (150-450); RBC 4.37 m/uL (4.30-5.90); RDW 14.5 % (11.5-15.5); WBC 7.8 k/uL (3.8-10.6)
[2021-08-12 06:42] LABS: INR 1.1 (<1.2); Partial Thromboplastin Time 22.1 sec (22.0-30.0); Prothrombin Time 11.3 sec (9.0-12.0)
[2021-08-12 06:43] LABS: ALT 20 U/L (4-49); AST 32 U/L (17-59); African American GFR (CKD) >90 (>60 ml/min/1.73 sqM); Albumin 4.1 g/dL (3.5-5.0); Alkaline Phosphatase 58 U/L (38-126); Anion Gap 10 mmol/L; Blood Urea Nitrogen 20 mg/dL (9-20); Calcium 9.7 mg/dL (8.4-10.2); Carbon Dioxide 21 mmol/L (22-30); Chloride 107 mmol/L (98-107); Glucose 97 mg/dL (74-99); Non-African American GFR(CKD) 88 (>60 ml/min/1.73 sqM); Potassium 4.1 mmol/L (3.5-5.1); Sodium 138 mmol/L (137-145); Total Protein 6.8 g/dL (6.3-8.2)
[2021-08-12 07:01] LABS: Appearance,Urine Clear (Clear); Bilirubin,Urine Negative (Negative); Blood,Urine Negative (Negative); Color,Urine Light Yellow; Glucose,Urine (UA) Negative (Negative); Ketones,Urine Negative (Negative); Leukocyte Esterase,Urine Negative (Negative); Nitrite,Urine Negative (Negative); PH, Urine 7.5 (5.0-8.0); Protein,Urine Negative (Negative); Specific Gravity,Urine 1.007 (1.001-1.035); Urobilinogen,Urine <2.0 mg/dL (<2.0)
--- NOTE | 2021-08-12 07:12 | ED ---
Dizziness HPI - General Chief Complaint: Dizziness Stated Complaint: Dizziness Time Seen by Provider: 08/12/21 05:49 Source: patient, EMS, RN notes reviewed Mode of arrival: EMS Limitations: no limitations - History of Present Illness Initial Comments: Patient is a 75-year-old male that presents to the emergency department complaining of dizziness. He notes that he's had this episode 2 nights in a row. He notes first night he sat up in bed or the bathroom got up walked dizziness subsided. He notes that this morning around 2-3:00 in the morning he sat up again in his bed got dizzy walking the bathroom but the dizziness did not subside. He notes that he does have a significant history of a recent pacemaker placement on July [address] [place]. Patient notes that when he moves his head or body the dizziness comes on. He also notes that he has not drank very much water or a wall last several days. She notes that he does take clopidogrel and aspirin along with several other blood pressure medications. Patient was otherwise well-appearing in no apparent distress. He denied any chest pain shortness of breath headache nausea vomiting diarrhea constipation fever fatigue chills. - Related Data Home Medications Medication Instructions Recorded Confirmed Cholecalciferol [Vitamin D3 (25 50 mcg PO DAILY 04/02/21 04/02/21 Mcg = 1000 Iu)] Cider Vinegar [Apple Cider Vinegar] 600 mg PO DAILY 04/02/21 04/02/21 Previous Rx's Medication Instructions Recorded Aspirin 81 mg PO DAILY #90 chew 04/04/21 Atorvastatin [Lipitor] 80 mg PO HS #90 tab 04/04/21 Clopidogrel [Plavix] 75 mg PO DAILY #90 tab 04/04/21 Metoprolol Tartrate [Lopressor] 12.5 mg PO BID #180 tab 04/04/21 Nitroglycerin Sl Tabs [Nitrostat] 0.4 mg SUBLINGUAL Q5M PRN #1 bottle 04/04/21 lisinopriL [Zestril] 2.5 mg PO HS #90 tab 04/04/21 Allergies Allergy/AdvReac Type Severity Reaction Status Date / Time No Known Allergies Allergy Verified 04/02/21 06:55 Review of Systems ROS Statement: Those systems with pertinent positive or pertinent negative responses have been documented in the HPI. ROS Other: All systems not noted in ROS Statement are negative. Past Medical History Past Medical History: Hyperlipidemia, Hypertension History of Any Multi-Drug Resistant Organisms: None Reported Past Surgical History: Appendectomy, Back Surgery, Pacemaker Past Psychological History: No Psychological Hx Reported Smoking Status: Never smoker Past Alcohol Use History: Occasional Past Drug Use History: None Reported - Past Family History Father Family Medical History: Myocardial Infarction ([place]) General Exam Limitations: no limitations General appearance: alert, in no apparent distress Head exam: Present: atraumatic, normocephalic, normal inspection Eye exam: Present: normal appearance, PERRL, EOMI. Absent: scleral icterus, conjunctival injection, periorbital swelling ENT exam: Present: normal exam, mucous membranes moist Neck exam: Present: normal inspection Respiratory exam: Present: normal lung sounds bilaterally. Absent: respiratory distress, wheezes, rales, rhonchi, stridor Cardiovascular Exam: Present: regular rate, normal rhythm, normal heart sounds. Absent: systolic murmur, diastolic murmur, rubs, gallop, clicks Extremities exam: Present: normal inspection, full ROM, normal capillary refill. Absent: tenderness, pedal edema, joint swelling, calf tenderness Neurological exam: Present: alert, oriented X3 Expanded Patient oriented to: Present: person, place, time Speech: Present: fluid speech Cranial nerves: EOM's Intact: Normal, Nystagmus: Normal Cerebellar function: Finger to Nose: Normal, Heel to [place]: Normal Motor strength exam: RUE: 5, LUE: 5, RLE: 5, LLE: 5 Psychiatric exam: Present: normal affect, normal mood Skin exam: Present: warm, dry, intact, normal color, other (Ecchymosis left upper extremity most likely postsurgical. Pacemaker incision site healing well. Her symptoms of infection.). Absent: rash Course Vital Signs 08/12/21 08/12/21 08/12/21 05:37 05:48 06:14 Temperature 97.9 F Pulse Rate 83 81 Pulse Rate [ 86 Timber Deadener ] Respiratory 18 18 Rate Blood Pressure 146/74 Blood Pressure 139/74 [Right Arm Sitting] Blood Pressure 131/88 [Right Arm Standing] Blood Pressure 138/76 [Right Arm Supine] O2 Sat by Pulse 96 97 Oximetry EKG Findings - EKG Comments: EKG Findings:: Ventricular rate 84 bpm, VT interval 170 ms, QRS duration 126 ms, QTC 467 ms, PRT axes 45/-25/60. Normal sinus rhythm, left axis deviation, nonspecific intraventricular block, cannot rule out anteroseptal infarct age undetermined, T-wave abnormality consider lateral ischemia it abnormal ECG. Medical Decision Making - Medical Decision Making 75-year-old male complaining of dizziness upon sitting up in bed this morning. Notes that it is more positional in nature. Labs, 1 L normal saline, chest x-ray, EKG, media monitor, 25 mg of meclizine ordered. Labs: CBC unremarkable CMP within normal limits, troponin 0.047, urinalysis negative. Chest x-ray negative for any acute bony process. Unable to compare EKGs due to technical hours. Case discussed with Dr. Weston, patient will be admitted. Dr. Boykin was consulted and will accept the admit with cardiology on consult. - Lab Data Result diagrams: 08/12/21 06:11 08/12/21 06:11 Lab Results 08/12/21 08/12/21 08/12/21 Range/Units 06:11 06:11 06:11 WBC 7.8 (3.8-10.6) k/uL RBC 4.37 (4.30-5.90) m/uL Hgb 13.9 (13.0-17.5) gm/dL Hct 42.0 (39.0-53.0) % MCV 96.0 (80.0-100.0) fL MCH 31.8 (25.0-35.0) pg MCHC 33.1 (31.0-37.0) g/dL RDW 14.5 (11.5-15.5) % Plt Count 175 (150-450) k/uL MPV 7.5 Neutrophils % 67 % Lymphocytes % 24 % Monocytes % 5 % Eosinophils % 1 % Basophils % 1 % Neutrophils # 5.3 (1.3-7.7) k/uL Lymphocytes # 1.9 (1.0-4.8) k/uL Monocytes # 0.4 (0-1.0) k/uL Eosinophils # 0.1 (0-0.7) k/uL Basophils # 0.0 (0-0.2) k/uL PT 11.3 (9.0-12.0) sec INR 1.1 (<1.2) APTT 22.1 (22.0-30.0) sec Sodium (137-145) mmol/L Potassium (3.5-5.1) mmol/L Chloride (98-107) mmol/L Carbon Dioxide (22-30) mmol/L Anion Gap mmol/L BUN (9-20) mg/dL Creatinine (0.66-1.25) mg/dL Est GFR (CKD-EPI)AfAm (>60 ml/min/1.73 sqM) Est GFR (CKD-EPI)NonAf (>60 ml/min/1.73 sqM) Glucose (74-99) mg/dL Calcium (8.4-10.2) mg/dL Total Bilirubin (0.2-1.3) mg/dL AST (17-59) U/L ALT (4-49) U/L Alkaline Phosphatase (38-126) U/L Troponin I (0.000-0.034) ng/mL Total Protein (6.3-8.2) g/dL Albumin (3.5-5.0) g/dL Urine Color Light Yellow Urine Appearance Clear (Clear) Urine pH 7.5 (5.0-8.0) Ur Specific [place] 1.007 (1.001-1.035) Urine Protein Negative (Negative) Urine Glucose (UA) Negative (Negative) Urine Ketones Negative (Negative) Urine Blood Negative (Negative) Urine Nitrite Negative (Negative) Urine Bilirubin Negative (Negative) Urine Urobilinogen <2.0 (<2.0) mg/dL Ur Leukocyte Esterase Negative (Negative) 08/12/21 08/12/21 Range/Units 06:11 06:11 WBC (3.8-10.6) k/uL RBC (4.30-5.90) m/uL Hgb (13.0-17.5) gm/dL Hct (39.0-53.0) % MCV (80.0-100.0) fL MCH (25.0-35.0) pg MCHC (31.0-37.0) g/dL RDW (11.5-15.5) % Plt Count (150-450) k/uL MPV Neutrophils % % Lymphocytes % % Monocytes % % Eosinophils % % Basophils % % Neutrophils # (1.3-7.7) k/uL Lymphocytes # (1.0-4.8) k/uL Monocytes # (0-1.0) k/uL Eosinophils # (0-0.7) k/uL Basophils # (0-0.2) k/uL PT (9.0-12.0) sec INR (<1.2) APTT (22.0-30.0) sec Sodium 138 (137-145) mmol/L Potassium 4.1 (3.5-5.1) mmol/L Chloride 107 (98-107) mmol/L Carbon Dioxide 21 L (22-30) mmol/L Anion Gap 10 mmol/L BUN 20 (9-20) mg/dL Creatinine 0.79 (0.66-1.25) mg/dL Est GFR (CKD-EPI)AfAm >90 (>60 ml/min/1.73 sqM) Est GFR (CKD-EPI)NonAf 88 (>60 ml/min/1.73 sqM) Glucose 97 (74-99) mg/dL Calcium 9.7 (8.4-10.2) mg/dL Total Bilirubin 1.0 (0.2-1.3) mg/dL AST 32 (17-59) U/L ALT 20 (4-49) U/L Alkaline Phosphatase 58 (38-126) U/L Troponin I 0.047 H* (0.000-0.034) ng/mL Total Protein 6.8 (6.3-8.2) g/dL Albumin 4.1 (3.5-5.0) g/dL Urine Color Urine Appearance (Clear) Urine pH (5.0-8.0) Ur Specific [place] (1.001-1.035) Urine Protein (Negative) Urine Glucose (UA) (Negative) Urine Ketones (Negative) Urine Blood (Negative) Urine Nitrite (Negative) Urine Bilirubin (Negative) Urine Urobilinogen (<2.0) mg/dL Ur Leukocyte Esterase (Negative) - EKG Data -: EKG Interpreted by Ut EKG shows normal: sinus rhythm Rate: normal EKG Comments: Ventricular rate 84 bpm, VT interval 170 ms, QRS duration 126 ms, QTC 467 ms, PRT axes 45/-25/60. Normal sinus rhythm, left axis deviation, nonspecific intraventricular block, cannot rule out anteroseptal infarct age undetermined, T-wave abnormality consider lateral ischemia it abnormal ECG. - Radiology Data Radiology results: report reviewed, image reviewed Chest x-ray: Cardiomegaly without acute component process. Disposition Clinical Impression: Dizziness, Elevated troponin Disposition: ADMITTED IP TO THIS HOSP Condition: Stable Is patient prescribed a controlled substance at d/c from ED?: No Referrals: Flex Hanks DO [Primary Care Provider] - 1-2 days Time of Disposition: 08:09
--- NOTE | 2021-08-12 07:42 | XR ---
EXAMINATION TYPE: XR chest 2V DATE OF EXAM: 08/12/2021 COMPARISON: Chest x-ray April 01, 2021 HISTORY: Weakness and dizziness. TECHNIQUE: Frontal and lateral views of the chest are obtained. FINDINGS: There is no suspicious new focal air space opacity, pleural effusion, or pneumothorax seen . The cardiac silhouette size is enlarged. New dual-lead pacemaker/defibrillator with leads termina ting in right atrium and right ventricle from prior. The osseous structures are intact. IMPRESSION: Cardiomegaly without acute pulmonary process.
[2021-08-12] MEDS ORDERED: NALOXONE 0.4 MG/ML 1 ML VIAL IV PRN (08:05)
[2021-08-12] MEDS: SODIUM CHLORIDE 0.9% 1,000 ML IV SCH ×3 (11:48→20:42)
[2021-08-12] MEDS ORDERED: NITROGLYCERIN SL TABS 0.4 MG TAB SUBLINGUAL PRN (12:26)
[2021-08-12] MEDS: CLOPIDOGREL 75 MG TAB PO SCH (14:10)
[2021-08-12] MEDS: LOSARTAN 25 MG TAB PO SCH (14:11)
[2021-08-12] MEDS: SPIRONOLACTONE 25 MG TAB PO SCH (14:11)
[2021-08-12] MEDS: METOPROLOL TARTRATE 25 MG TAB PO SCH ×2 (14:11→20:42)
[2021-08-12] MEDS ORDERED: MECLIZINE 12.5 MG TAB PO PRN (14:36)
[2021-08-12] MEDS ORDERED: ONDANSETRON 4 MG/2 ML VIAL IVP PRN (16:43)
[2021-08-12] MEDS ORDERED: MAG HYDROX/AL HYDROX/SIMETH 30 ML CUP PO PRN (16:43)
[2021-08-12] MEDS ORDERED: LACTULOSE 20 GM/30 ML CUP PO PRN (16:43)
[2021-08-12] MEDS ORDERED: MAGNESIUM HYDROXIDE 2,400 MG/10 ML CUP PO PRN (16:43)
[2021-08-12] MEDS ORDERED: ACETAMINOPHEN TAB 325 MG TAB PO PRN (16:43)
[2021-08-12] MEDS ORDERED: MELATONIN 3 MG TABLET PO PRN (16:43)
[2021-08-12] MEDS ORDERED: CALCIUM CARBONATE 500 MG CHEWABLE PO PRN (16:43)
--- NOTE | 2021-08-12 16:43 | P.HPIM ---
History of Present Illness H&P Date: 08/12/21 Chief Complaint: DZ History of presenting complaint: This is a 75-year-old patient who follows with Dr. Hanks. In March 2021 patient had acute OK, ,got 2 stents to the LAD. Other chronic stable medical conditions include essential hypertension, hyperlipidemia. Patient had a AICD pacemaker placed by Dr. Christiano Washington at [facility] on July 24 of this year. Friday morning patient had an episode of getting dizzy when he got up to go to the bathroom at night. Symptoms improved. He remained well all day. At 2:00 this morning again with the patient to get up he became very dizzy. He is managed to get to the bathroom. Was feeling better when he sat on the commode. She was again very dizzy and he got back to the back. No change in vision. No change in speech. No headaches. Patient symptoms up present predominantly when he moves his head. He did feel better after getting Antivert. No chest pain or palpitation. Patient was negative for orthostatic in the ER. Review of systems: GEN.: Tired EYES: None HEENT: None NECK: None RESPIRATORY: None CARDIOVASCULAR: As above GASTROINTESTINAL: None GENITOURINARY: None MUSCULOSKELETAL: None LYMPHATICS: None HEMATOLOGICAL: None PSYCHIATRY: None NEUROLOGICAL: As above Past medical history to include: Hypertension, hyperlipidemia, AICD pacemaker placed in 07/24/2021, CAD/stent to LAD Social history: . 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 Alcohol occasionally. Family history: Myocardial infarction Physical examination: VITAL SIGNS: 97.9, 83, 18, 146 with 74, 96% room air. Negative orthostatics GENERAL: BMI 28.3, laying in bed, comfortable. Patient did become a bit dizzy when he sat at the age of the bed. EYES: Pupils equal. Conjunctiva normal. HEENT: External appearance of nose and ears normal, oral cavity grossly normal. NECK: JVD not raised; masses not palpable. HEART: First and second heart sounds are normal; no edema. LUNGS: Respiratory rate normal; clear to auscultation. ABDOMEN: Soft, nontender, liver spleen not palpable, no masses palpable. PSYCH: Alert and oriented x3; mood and affect normal. NEUROLOGICAL: Cranial nerves grossly intact; no facial asymmetry, power and sensation grossly intact. LYMPHATICS: No lymph nodes palpable in the axilla and neck INVESTIGATIONS, reviewed in the clinical context: WBC 7.8 and 30.9 platelets 175 potassium 4.1 creatinine 0.79 Troponin I 0.047 UA negative Coronavirus [PCR]: Not detected EKG tracing personally reviewed by me-normal sinus rhythm, T-wave changes, intraventricular block. Chest x-ray film personally reviewed by me-RADHA valdez. Assessment and plan: -Acute episode of dizziness especially on moving his head. No other cerebellar symptoms. No palpitations. Negative for orthostatic. Symptoms did feel a bit better with Antivert. Likely benign paroxysmal positional vertigo. Sindy maneuver exercises be given. Antivert when necessary. Patient needs to have his pacemaker checked -Coronary artery disease, with stent to the proximal LAD, March 2021 aspirin, Lipitor, Plavix, Lopressor -Essential hypertension On Lopressor and Cozaar -Hyperlipidemia On Lipitor. Patient be kept on telemetry. Cardiology consulted. Sindy exercises. Discussed with the patient for-daughter the bedside. Questions answered. Pacemaker/AICD check Past Medical History Past Medical History: Hyperlipidemia, Hypertension History of Any Multi-Drug Resistant Organisms: None Reported Past Surgical History: Appendectomy, Back Surgery, Pacemaker Past Psychological History: No Psychological Hx Reported Smoking Status: Never smoker Past Alcohol Use History: Occasional Past Drug Use History: None Reported - Past Family History Father Family Medical History: Myocardial Infarction (OK) Medications and Allergies Home Medications Medication Instructions Recorded Confirmed Type Aspirin 81 mg PO DAILY #90 chew 04/04/21 08/12/21 Rx Atorvastatin [Lipitor] 80 mg PO HS #90 tab 04/04/21 08/12/21 Rx Clopidogrel [Plavix] 75 mg PO DAILY #90 tab 04/04/21 08/12/21 Rx Ascorbic Acid [Vitamin C] 1,000 mg PO DAILY 08/12/21 08/12/21 History Losartan [Cozaar] 25 mg PO DAILY 08/12/21 08/12/21 History Metoprolol Tartrate [Lopressor] 25 mg PO BID 08/12/21 08/12/21 History Nitroglycerin Sl Tabs [Nitrostat] 0.4 mg SL Q5M PRN 08/12/21 08/12/21 History Spironolactone [Aldactone] 25 mg PO DAILY 08/12/21 08/12/21 History Allergies Allergy/AdvReac Type Severity Reaction Status Date / Time No Known Allergies Allergy Verified 08/12/21 09:16 Physical Exam Vitals: Vital Signs Temp Pulse Pulse Resp BP BP BP 08/12/21 12:08 72 18 115/66 08/12/21 10:00 71 18 113/63 08/12/21 09:00 75 18 08/12/21 08:00 77 18 131/67 08/12/21 06:14 86 139/74 131/88 08/12/21 05:48 81 18 08/12/21 05:37 97.9 F 83 18 146/74 BP Pulse Ox 08/12/21 12:08 98 08/12/21 10:00 98 08/12/21 09:00 98 08/12/21 08:00 97 08/12/21 06:14 138/76 08/12/21 05:48 97 08/12/21 05:37 96 Intake and Output 08/11/21 08/12/21 08/12/21 22:59 06:59 14:59 Other: Weight 76.204 kg Results CBC & Chem 7: 08/12/21 06:11 08/12/21 06:11 Labs: Abnormal Lab Results - Last 24 Hours (Table) 08/12/21 08/12/21 Range/Units 06:11 06:11 Carbon Dioxide 21 L (22-30) mmol/L Troponin I 0.047 H* (0.000-0.034) ng/mL
[2021-08-12] MEDS ORDERED: ATORVASTATIN 80 MG TAB PO SCH (21:00)
[2021-08-13] MEDS: SODIUM CHLORIDE 0.9% 1,000 ML IV SCH (04:31)
[2021-08-13] MEDS: CLOPIDOGREL 75 MG TAB PO SCH (07:41)
[2021-08-13] MEDS: SPIRONOLACTONE 25 MG TAB PO SCH (07:41)
[2021-08-13] MEDS: LOSARTAN 25 MG TAB PO SCH (07:41)
[2021-08-13] MEDS: METOPROLOL TARTRATE 25 MG TAB PO SCH (07:41)
[2021-08-13 07:44] VITALS: RESP 18
[2021-08-13] MEDS ORDERED: ASCORBIC ACID 500 MG TAB PO SCH (09:00)
[2021-08-13] MEDS ORDERED: ASPIRIN 81 MG PO SCH (09:45)
[2021-08-13 11:08] VITALS: BP 131/61; PULSE 62; TEMP 97.9
--- NOTE | 2021-08-13 11:36 | P.CRDCN ---
History of Present Illness History of present illness: HISTORY OF PRESENTING ILLNESS This is a pleasant 75-year-old male past medical history significant for hypertension, hyperlipidemia, ischemic cardiomyopathy s/p dual chamber ICD placed 07/24/21 at [facility], coronary artery disease STEMI in March 2021 s/p PCI to LAD x 2. He follows in the office with Dr. Orellana. We have been asked to see in consultation for elevated troponin. Patient presents to the emergency department with complaints of dizziness. Yesterday morning patient states he was walking to the bathroom and had an episode of dizziness and some mild lightheadedness. He states his symptoms improved, Hemovac to bed with no further issues. However on patient ambulated again he had worsening dizziness and felt he had to hold onto the wall to maintain his balance. He denies any chest pain, shortness of breath, syncope, palpitations. He denies any symptoms of orthopnea or PND. At the time of exam patient's dizziness has significantly improved he states he is about 95% better. Aggravating factors include moving his head from side to side. He was started on meclizine with improvement. His device was checked at bedside this morning with no acute findings. DIAGNOSTICS EKG reveals sinus rhythm, heart rate 84, right bundle-branch block, T wave inversions in leads V2V5. unable to review prior EKG. 24-hour holter monitor in the office in June 2021 revealed sinus rhythm with sinus bradycardia, no episodes of more than 2 second pauses. Echocardiogram in the office June 2021- EF 30%, G2DD, moderate concentric left ventricular hypertrophy, mild AR, moderate to severe MR, moderate TR, moderate pericardial effusion Low level stress test April 2021- no evidence of stress induced ischemia Last Cardiac Catheterization March 2021, revealed totally occluded proximal LAD, atherosclerotic plaque in the proximal RCA, patient underwent successful stenting of proximal LAD x 2. Telemetry tracings indicate sinus mechanism HR 55-60s. Chest xray cardiomegaly, no acute process Laboratory reviewed, cbc unremarkable, troponin 0.04, 0.06, CBC unremarkable, sodium 138, potassium 4.1, BUN 20, serum creatinine 0.7, UA negative, COVID-19 PCR negative Current daily cardiac medications aspirin 81mg daily, atorvastatin 80mg daily, metoprolol tartrate 25mg BID, spironolactone 25mg daily, Plavix 75mg daily, losartan 25mg daily. REVIEW OF SYSTEMS At the time of my exam: CONSTITUTIONAL: Denies fever or chills. CARDIOVASCULAR: Denies chest pain, shortness of breath, orthopnea, PND or palpitations. RESPIRATORY: Denies cough. GASTROINTESTINAL: Denies abdominal pain, diarrhea, constipation, nausea or vomiting. MUSCULOSKELETAL: Denies myalgias. NEUROLOGIC: +dizziness Denies numbness, tingling, headacbe or weakness. ENDOCRINE: Denies fatigue, weight change, polydipsia or polyurina. GENITOURINARY: Denies burning, hematuria or urgency with micturation. HEMATOLOGIC: Denies history of anemia or bleeding. PHYSICAL EXAMINATION Blood pressure 131/61, heart rate 62, afebrile, did not saturations on room air Patient's orthostatic vital signs were negative CONSTITUTIONAL: No apparent distress. HEENT: Head is normocephalic. Pupils are equal, round. Sclerae anicteric. Mucous membranes of the mouth are moist. No JVD. No carotid bruit. CHEST EXAMINATION: Lungs are clear to auscultation. No chest wall tenderness is noted on palpation or with deep breathing. HEART EXAMINATION: Regular rate and rhythm. S1, S2 heard. No murmurs, gallops or rub. ABDOMEN: Soft, nontender. Positive bowel sounds. EXTREMITIES: 2+ peripheral pulses, no lower extremity edema and no calf tend erness. SKIN: intact NEUROLOGIC EXAMINATION: Patient is awake, alert and oriented x3. ASSESSMENT Acute onset dizziness, agree with most likely benign paroxysmal positional vertigo Elevated troponin, unclear significance at this time, possibly related to patient's chronic heart failure. Patient without any symptoms of chest pain/shortness of breath, no evidence of ischemia on EKG. Hypertension Hyperlipidemia Ischemic cardiomyopathy s/p dual chamber ICD placed 07/24/21 Coronary artery disease, STEMI in March 2021 s/p PCI to LAD x 2 PLAN -Patient's device interrogated with no acute findings. -Patient's elevated troponin possibly related to patient's chronic heart failure. Patient without any symptoms of chest pain/shortness of breath, no evidence of ischemia on EKG. -From a cardiology perspective, continue current medication regimen with aspirin, plavix, statin, losartan, metoprolol titrate, spironolactone -No further workup from a cardiology perspective, we will follow the patient as needed. Please reach out with further questions or concerns -Follow up outpatient with Dr. Orellana Thank you kindly for this consultation. Nurse Practitioner note has been reviewed, I agree with a documented findings and plan of care. Patient was seen and examined. Past Medical History Past Medical History: Hyperlipidemia, Hypertension Last Myocardial Infarction Date:: march 2021 History of Any Multi-Drug Resistant Organisms: None Reported Past Surgical History: Appendectomy, Back Surgery, Pacemaker Past Anesthesia/Blood Transfusion Reactions: No Reported Reaction Date of Last Stent Placement:: march 2021 Type of Cardiac Device: AICD Device Placement Date:: march 2021 Past Psychological History: No Psychological Hx Reported Smoking Status: Never smoker Past Alcohol Use History: Occasional Past Drug Use History: None Reported - Past Family History Father Family Medical History: Myocardial Infarction (DC) Medications and Allergies Home Medications Medication Instructions Recorded Confirmed Type Aspirin 81 mg PO DAILY #90 chew 04/04/21 08/12/21 Rx Atorvastatin [Lipitor] 80 mg PO HS #90 tab 04/04/21 08/12/21 Rx Clopidogrel [Plavix] 75 mg PO DAILY #90 tab 04/04/21 08/12/21 Rx Ascorbic Acid [Vitamin C] 1,000 mg PO DAILY 08/12/21 08/12/21 History Losartan [Cozaar] 25 mg PO DAILY 08/12/21 08/12/21 History Metoprolol Tartrate [Lopressor] 25 mg PO BID 08/12/21 08/12/21 History Nitroglycerin Sl Tabs [Nitrostat] 0.4 mg SL Q5M PRN 08/12/21 08/12/21 History Spironolactone [Aldactone] 25 mg PO DAILY 08/12/21 08/12/21 History Allergies Allergy/AdvReac Type Severity Reaction Status Date / Time No Known Allergies Allergy Verified 08/12/21 09:16 Physical Exam Vitals: Vital Signs Temp Pulse Pulse Resp BP BP BP 08/13/21 02:50 66 16 122/66 08/12/21 23:35 63 16 08/12/21 23:33 63 16 133/65 08/12/21 19:48 97.7 F 60 16 118/61 08/12/21 19:45 74 18 08/12/21 16:00 96.7 F L 74 18 118/63 08/12/21 14:00 62 18 08/12/21 13:00 62 18 08/12/21 12:27 62 18 08/12/21 12:08 72 18 115/66 08/12/21 10:00 71 18 113/63 08/12/21 09:00 75 18 08/12/21 08:00 77 18 131/67 BP Pulse Ox 08/13/21 02:50 98 08/12/21 23:35 08/12/21 23:33 98 08/12/21 19:48 96 08/12/21 19:45 08/12/21 16:00 93 L 08/12/21 14:00 08/12/21 13:00 123/57 98 08/12/21 12:27 123/57 98 08/12/21 12:08 98 08/12/21 10:00 98 08/12/21 09:00 98 08/12/21 08:00 97 Intake and Output 08/12/21 08/13/21 08/13/21 22:59 06:59 14:59 Intake Total 1580 Output Total 400 Balance 1580 -400 Intake: Intake, IV Titration 1040 Amount Sodium Chloride 0.9% 1, 1040 000 ml @ 130 mls/hr IV . Q7H42M [facility] Rx#:[id number] Oral 540 Output: Urine 400 Other: Voiding Method Toilet Toilet # Voids 1 Weight 77.7 kg Results 08/12/21 06:11 08/12/21 06:11 Cardiac Enzymes 08/12/21 08/12/21 Range/Units 06:11 17:10 Troponin I 0.047 H* 0.060 H* (0.000-0.034) ng/mL Current Medications Generic Name Dose Route Start Last Admin Trade Name Freq PRN Reason Stop Dose Admin Acetaminophen 650 mg 08/12/21 16:43 Acetaminophen Tab 325 Mg Tab PO Q6HR PRN Mild Pain or Fever > 100.5 Al Hydroxide/Mg Hydroxide 15 ml 08/12/21 16:43 Mag Hydrox/Al Hydrox/Simeth 30 Ml Cup PO Q6HR PRN Indigestion Ascorbic Acid 1,000 mg 08/13/21 09:00 Ascorbic Acid 500 Mg Tab PO DAILY MARIANA Atorvastatin Calcium 80 mg 08/12/21 21:00 08/12/21 20:42 Atorvastatin 80 Mg Tab PO 80 mg HS MARIANA Administration Calcium Carbonate/Glycine 1,000 mg 08/12/21 16:43 Calcium Carbonate 500 Mg Chewable PO Q4HR PRN Dyspepsia Clopidogrel Bisulfate 75 mg 08/12/21 12:30 08/12/21 14:10 Clopidogrel 75 Mg Tab PO Not Given DAILY MARIANA Sodium Chloride 1,000 mls @ 130 mls/hr 08/12/21 08:15 08/13/21 04:31 Saline 0.9% IV 130 mls/hr .Q7H42M MARIANA Administration Lactulose 20 gm 08/12/21 16:43 Lactulose 20 Gm/30 Ml Cup PO DAILY PRN Constipation Losartan Potassium 25 mg 08/12/21 12:30 08/12/21 14:11 Losartan 25 Mg Tab PO Not Given DAILY MARIANA Magnesium Hydroxide 2,400 mg 08/12/21 16:43 Magnesium Hydroxide 2,400 Mg/10 Ml Cup PO DAILY PRN Constipation Meclizine HCl 12.5 mg 08/12/21 14:36 Meclizine 12.5 Mg Tab PO QID PRN Vertigo Melatonin 3 mg 08/12/21 16:43 Melatonin 3 Mg Tablet PO HS PRN Insomnia Metoprolol Tartrate 25 mg 08/12/21 12:30 08/12/21 20:42 Metoprolol Tartrate 25 Mg Tab PO 25 mg BID MARIANA Administration Naloxone HCl 0.2 mg 08/12/21 08:05 Naloxone 0.4 Mg/Ml 1 Ml Vial IV Q2M PRN Opioid Reversal Nitroglycerin 0.4 mg 08/12/21 12:26 Nitroglycerin Sl Tabs 0.4 Mg Tab SUBLINGUAL Q5M PRN Chest Pain Ondansetron HCl 4 mg 08/12/21 16:43 Ondansetron 4 Mg/2 Ml Vial IVP Q8HR PRN Nausea And Vomiting Spironolactone 25 mg 08/12/21 12:30 08/12/21 14:11 Spironolactone 25 Mg Tab PO Not Given DAILY [facility] Intake and Output 08/12/21 08/13/21 08/13/21 22:59 06:59 14:59 Intake Total 1580 Output Total 400 Balance 1580 -400 Intake: Intake, IV Titration 1040 Amount Sodium Chloride 0.9% 1, 1040 000 ml @ 130 mls/hr IV . Q7H42M [facility] Rx#:[id number] Oral 540 Output: Urine 400 Other: Voiding Method Toilet Toilet # Voids 1 Weight 77.7 kg 08/12/21 06:11 08/12/21 06:11
--- NOTE | 2021-08-13 19:45 | P.EPPROC ---
- EP Procedure Note Electrophysiology Procedure Note: Patient's dual-chamber ICD was interrogated. He presented with dizziness ICD is functioning normally Atrial pacing threshold 0.75 V at 0.5 ms, P waves 4.1 mV and pacing impedance 380 ohms RV pacing is a 1 warted 0.5 ms, R waves 11.4 mV and pacing impedance 390 ohms High-voltage impedance is 51 ohms No ventricular arrhythmias were noted Atrial pacing percentage is less than 5% Minimal RV pacing Impression normal ICD function No arrhythmias detected
--- NOTE | 2021-08-13 20:13 | P.DS ---
Providers Date of admission: 08/12/21 08:06 Expected date of discharge: 08/13/21 Attending physician: Julian Boykin Consults: 08/12/21 08:06 Consult Physician Urgent Consulting Provider: Christiano Washington Consult Reason/Comments: elevated troponin Do you want consulting provider notified?: Yes Primary care physician: [facility] Course: Chief Complaint: DZ History of presenting complaint: This is a 75-year-old patient who follows with Dr. Hanks. In March 2021 patient had acute MD, ,got 2 stents to the LAD. Other chronic stable medical conditions include essential hypertension, hyperlipidemia. Patient had a AICD pacemaker placed by Dr. Christiano Washington at [facility] on July 24 of this year. Friday morning patient had an episode of getting dizzy when he got up to go to the bathroom at night. Symptoms improved. He remained well all day. At 2:00 this morning again with the patient to get up he became very dizzy. He is managed to get to the bathroom. Was feeling better when he sat on the commode. She was again very dizzy and he got back to the back. No change in vision. No change in speech. No headaches. Patient symptoms up present predominantly when he moves his head. He did feel better after getting Antivert. No chest pain or palpitation. Patient was negative for orthostatic in the ER. August 13: Patient is is now felt to have BPPV. Responded well to Dennis exercises. Pacemaker check was done today. Good. Care was discussed with the patient and . Cleared by cardiology for discharge. Consultation: Dr. 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 Family history: Myocardial infarction Physical examination: VITAL SIGNS: 97.9, 62, 18, 131 with 61, 97% room air GENERAL: Sitting up, comfortable EYES: Pupils equal. Conjunctiva normal. HEENT: External appearance of nose and ears normal, oral cavity grossly normal. NECK: JVD not raised; masses not palpable. HEART: First and second heart sounds are normal; no edema. LUNGS: Respiratory rate normal; clear to auscultation. ABDOMEN: Soft, nontender, liver spleen not palpable, no masses palpable. PSYCH: Alert and oriented x3; mood and affect normal. INVESTIGATIONS, reviewed in the clinical context: WBC 7.8 and 30.9 platelets 175 potassium 4.1 creatinine 0.79 Troponin I 0.047, 0.060 UA negative Coronavirus [PCR]: Not detected EKG tracing personally reviewed by me-normal sinus rhythm, T-wave changes, intraventricular block. Chest x-ray film personally reviewed by me-RADHA valdez. Assessment and plan: -Acute episode of dizziness especially on moving his head. No other cerebellar symptoms. No palpitations. Negative for orthostatic. Symptoms did feel a bit better with Antivert. Likely benign paroxysmal positional vertigo. Dennis maneuver exercises be given. Antivert when necessary. Patient needs to have his pacemaker checked -Coronary artery disease, with stent to the proximal LAD, March 2021 aspirin, Lipitor, Plavix, Lopressor -Essential hypertension On Lopressor and Cozaar -Hyperlipidemia On Lipitor. -Troponin leak possibly from hemodynamic change. No acute coronary syndrome. Disposition: Home Plan - Discharge Summary Discharge Rx Participant: No New Discharge Prescriptions: New Meclizine [Antivert] 12.5 mg PO TID PRN #10 tab PRN Reason: Vertigo Continue Atorvastatin [Lipitor] 80 mg PO HS #90 tab Clopidogrel [Plavix] 75 mg PO DAILY #90 tab Metoprolol Tartrate [Lopressor] 25 mg PO BID Losartan [Cozaar] 25 mg PO DAILY Nitroglycerin Sl Tabs [Nitrostat] 0.4 mg SL Q5M PRN PRN Reason: Chest Pain Aspirin 81 mg PO DAILY #90 chew Spironolactone [Aldactone] 25 mg PO DAILY Ascorbic Acid [Vitamin C] 1,000 mg PO DAILY Discharge Medication List Aspirin 81 mg PO DAILY #90 chew 04/04/21 [Rx] Atorvastatin [Lipitor] 80 mg PO HS #90 tab 04/04/21 [Rx] Clopidogrel [Plavix] 75 mg PO DAILY #90 tab 04/04/21 [Rx] Ascorbic Acid [Vitamin C] 1,000 mg PO DAILY 08/12/21 [History] Losartan [Cozaar] 25 mg PO DAILY 08/12/21 [History] Metoprolol Tartrate [Lopressor] 25 mg PO BID 08/12/21 [History] Nitroglycerin Sl Tabs [Nitrostat] 0.4 mg SL Q5M PRN 08/12/21 [History] Spironolactone [Aldactone] 25 mg PO DAILY 08/12/21 [History] Meclizine [Antivert] 12.5 mg PO TID PRN #10 tab 08/13/21 [Rx] Follow up Appointment(s)/Referral(s): Flex Hanks DO [Primary Care Provider] - 08/15/21 8:20 am Refugio Orellana MD [STAFF PHYSICIAN] - 08/20/21 2:00 pm Patient Instructions/Handouts: Benign Paroxysmal Positional Vertigo (DC) Activity/Diet/Wound Care/Special Instructions: dennis manoever exercises Discharge Disposition: HOME SELF-CARE
== END 2021-08-13 12:17 | disposition home or self-care (01) ==
LOC: EC 05:34 → 3SCARD 08:06
PROVIDERS: ADMIT Hospitalist; ATTEND Hospitalist
DX: R42 Dizziness and giddiness (principal); R77.8 Other specified abnormalities of plasma proteins; I25.2 Old myocardial infarction; I11.0 Hypertensive heart disease with heart failure; I50.9 Heart failure, unspecified; E78.5 Hyperlipidemia, unspecified; I25.5 Ischemic cardiomyopathy; I45.4 Nonspecific intraventricular block; I25.10 Atherosclerotic heart disease of native coronary artery without angina pectoris; Z20.822 Contact with and (suspected) exposure to COVID-19; Z95.5 Presence of coronary angioplasty implant and graft; Z95.810 Presence of automatic (implantable) cardiac defibrillator; Z79.82 Long term (current) use of aspirin; Z79.899 Other long term (current) drug therapy; Z79.02 Long term (current) use of antithrombotics/antiplatelets; Z90.49 Acquired absence of other specified parts of digestive tract; Z82.49 Family history of ischemic heart disease and other diseases of the circulatory system
CPT/HCPCS: 96361; 96360; 99285; 36415; 93005; 80053; 84484; 85025; 85610; 85730; 81003; 87635; 71046; 93289; G0378 ×2

== ENCOUNTER → 2023-05-01 | Outpatient (CLI) | payer MEDICARE ==
--- NOTE | 2023-05-01 11:17 | CT ---
EXAMINATION TYPE: CT lumbar spine wo con DATE OF EXAM: 05/01/2023 COMPARISON: None HISTORY: Low back pain radiating down bilateral legs. CT DLP: 881.[address] of the lumbar spine was performed. Bone and soft tissue window settings are submitted as well as coronal and sagittal reconstructions. L1-L2: Normal disc space height. No disc herniation protrusion or central stenosis. No facet joint arthropathy. No evidence for foraminal encroachment. L2-L3: Severe disc space narrowing and vacuum disk. Moderate posterior disc bulge. Previous laminecto my change however I cannot exclude recurrent central stenosis. Moderate bilateral neural foraminal en croachment. L3-L4: Moderate to severe disc space narrowing with posterior broad-based disc bulge. Effacement of v entral thecal sac. Midline laminectomy change. I cannot exclude a degree of central stenosis. Severe left-sided neural foraminal encroachment with mild right-sided neural foraminal encroachment. L4-L5: Moderate to severe disc space narrowing with posterior broad-based disc bulge. Effacement of v entral thecal sac. Midline laminectomy change. I cannot exclude a degree of central stenosis. Severe bilateral neural foraminal encroachment. L5-S1: Decompressive laminectomy changes. Postoperative changes of fusion. Intervertebral spacer is i n place as well as stabilizing device. Pedicular screws noted. Postoperative alignment is within norm al limits. No evidence for central stenosis. Moderate right-sided neural foraminal encroachment. No paraspinal masses are identified. Lumbar segments are free of fracture. IMPRESSION: 1. Multilevel degenerative disc disease and postoperative change as discussed. Central stenosis is di fficult to exclude extending from L2-3 through L4-5. Consider myelogram for further evaluation.
== END | disposition home or self-care (01) ==
LOC: RADCTMAIN 10:37
PROVIDERS: ATTEND Physical Medicine & Rehabilitation
DX: M47.816 Spondylosis without myelopathy or radiculopathy, lumbar region (principal); M48.062 Spinal stenosis, lumbar region with neurogenic claudication; M51.36 Other intervertebral disc degeneration, lumbar region; M99.73 Connective tissue and disc stenosis of intervertebral foramina of lumbar region
CPT/HCPCS: 72131

== ENCOUNTER 2025-06-07 08:25 | Observation (INO) | payer MEDICARE ==
--- NOTE | 2025-06-07 08:49 | ED ---
General Adult HPI - General Chief complaint: ENT Stated complaint: Post op oral infection Time Seen by Provider: 06/07/25 08:30 Source: patient Mode of arrival: ambulatory Limitations: no limitations - History of Present Illness Initial comments: Dictation was produced using [employer] dictation software. please excuse any grammatical, word or spelling errors. Chief Complaint: 79-year-old male presents to the emergency department for post dental extraction swelling History of Present Illness: Patient is an 79-year-old male who was seen by dentist today. Friday he had dental extraction of tooth #17. Patient takes Eliquis. He was without Eliquis from Friday to Friday. After the procedure he started his Eliquis on Friday. Took it Friday. This morning he woke up with significant swelling to his left jaw. He was seen by the dentist who pe rformed the dental extraction and was told to come to the ER for IV antibiotics. Patient complaining of pain states that it feels like it goes down into his throat. Denies any trouble breathing. The ROS documented in this emergency department record has been reviewed and confirmed by me. Those systems with pertinent positive or negative responses have been documented in the HPI. All other systems are other negative and/or noncontributory. - Related Data Home Medications Medication Instructions Recorded Confirmed Ascorbic Acid [Vitamin C] 1,000 mg PO DAILY 08/12/21 08/12/21 Losartan [Cozaar] 25 mg PO DAILY 08/12/21 08/12/21 Metoprolol Tartrate [Lopressor] 25 mg PO BID 08/12/21 08/12/21 Nitroglycerin Sl Tabs [Nitrostat] 0.4 mg SL Q5M PRN 08/12/21 08/12/21 Spironolactone [Aldactone] 25 mg PO DAILY 08/12/21 08/12/21 Previous Rx's Medication Instructions Recorded Aspirin 81 mg PO DAILY #90 chew 04/04/21 Atorvastatin [Lipitor] 80 mg PO HS #90 tab 04/04/21 Clopidogrel [Plavix] 75 mg PO DAILY #90 tab 04/04/21 Meclizine [Antivert] 12.5 mg PO TID PRN #10 tab 08/13/21 Allergies Allergy/AdvReac Type Severity Reaction Status Date / Time No Known Allergies Allergy Verified 08/12/21 09:16 Review of Systems ROS Statement: Those systems with pertinent positive or pertinent negative responses have been documented in the HPI. ROS Other: All systems not noted in ROS Statement are negative. Past Medical History Past Medical History: Hyperlipidemia, Hypertension, Myocardial Infarction ([place]) Last Myocardial Infarction Date:: march 2021 History of Any Multi-Drug Resistant Organisms: None Reported Past Surgical History: Appendectomy, Back Surgery, Heart Catheterization With Stent, Pacemaker Additional Past Surgical History / Comment(s): aicd Past Anesthesia/Blood Transfusion Reactions: No Reported Reaction Date of Last Stent Placement:: march 2021 Type of Cardiac Device: AICD Device Placement Date:: march 2021 Past Psychological History: No Psychological Hx Reported Smoking Status: Never smoker Past Alcohol Use History: Occasional Past Drug Use History: None Reported - Past Family History Father Family Medical History: Myocardial Infarction ([place]) General Exam - General Exam Comments Initial Comments: PHYSICAL EXAM: General Impression: Alert and oriented x3, not in acute distress HEENT: Normocephalic atraumatic, extra-ocular movements intact, pupils equal and reactive to light bilaterally, mucous membranes moist. Oral: Significant swelling to the right proximal mandible, no submental tenderness however there is some swelling to the left submental area Cardiovascular: Heart regular rate and rhythm Chest: Able to complete full sentences, no retractions, no tachypnea Abdomen: abdomen soft, non-tender, non-distended, no organomegaly Musculoskeletal: Pulses present and equal in all extremities, no peripheral edema Motor: no focal deficits noted Neurological: CN II-XII grossly intact, no focal motor or sensory deficits noted Skin: Intact with no visualized rashes Psych: Normal affect and mood Limitations: no limitations Course Vital Signs 06/07/25 08:27 Temperature 98.3 F Pulse Rate 95 Respiratory 16 Rate Blood Pressure 125/74 O2 Sat by Pulse 97 Oximetry EKG Findings - EKG Comments: EKG Findings:: My EKG interpretation: Ventricular rate 86, sinus rhythm,. 11/11/2010, QRS 159, QTc 439, right bundle branch block. No VA prolongation, no QTC prolongation, no ST or T-wave changes noted. Overall, this EKG is unremarkable Medical Decision Making - Medical Decision Making Was pt. sent in by a medical professional or institution (, PA, IRON PILER, urgent care, hospital, or [place] health care facility...) When possible be specific @ -No Did you speak to anyone other than the patient for history (EMS, parent, family, police, friend...)? What history was obtained from this source @ -No Did you review nursing and triage notes (agree or disagree)? Why? @ -I reviewed and agree with nursing and triage notes Were old charts reviewed (outside hosp., previous admission, EMS record, old EKG, old radiological studies, urgent care reports/EKG's, [place] health care facility records)? Report findings @ -No old charts were reviewed Differential Diagnosis (chest pain, altered mental status, abdominal pain women, abdominal pain men, vaginal bleeding, musculoskeletal, weakness, fever, dyspnea, syncope, headache, dizziness, GI bleed, back pain, seizure, CVA, palpatations, mental health)? @ -Oneil's angina, dental infection, facial hematoma EKG interpreted by me (3pts min.). @ -See above X-rays interpreted by me (1pt min.). @ -None done CT interpreted by me (1pt min.). @ -CT brain shows no Oneil's angina U/S interpreted by me (1pt. min.). @ -None done What testing was considered but not performed or refused? (CT, X-rays, U/S, labs)? Why? @ -None What meds were considered but not given or refused? Why? @ -None Was smoking cessation discussed for >3mins.? @ -No Were there social determinants of health that impacted care today? How? (Homelessness, low income, unemployed, alcoholism, drug addiction, tr ansportation, low edu. Level, literacy, decrease access to med. care, fci, rehab)? @ -No Was there de-escalation of care discussed even if they declined (Discuss DNR or withdrawal of care, Hospice)? DNR status @ -No What co-morbidities impacted this encounter? (DM, HTN, Smoking, COPD, CAD, Cancer, CVA, ARF, Chemo, Hep., AIDS, mental health diagnosis, sleep apnea, morbid obesity)? @ -None Was patient admitted / discharged? Hospital course, mention meds given and route, prescriptions, significant lab abnormalities, going to OR and other pertinent info. @ -79-year-old male sent in from dentist office for worsening swelling at the dental extraction site. Vital signs stable. Patient does report some respiratory symptoms her physical examination is benign patient no acute distress tolerating oral secretions. Imaging study shows edema at the extraction site which may represent cellulitis. Laboratory evaluation is unremarkable. Patient be admitted with dentist on consult. Did you discuss the management of the patient with other professionals (professionals i.e. , PA, IRON PILER, lab, RT, psych nurse, psychotherapist social worker, marker maker, teacher, loan servicing officer, gearcase assembler)? Give summary @ -No Was critical care preformed (if so, how long)? @ -No Undiagnosed new problem with uncertain prognosis? @ -No Drug Therapy requiring intensive monitoring for toxicity (Heparin, Nitro, Insulin, Cardizem)? @ -No Were any procedures done? @ -No Diagnosis/symptom? Acute, or Chronic, or Acute on Chronic? Uncomplicated (without systemic symptoms) or Complicated (systemic symptoms)? @ -Patient will cellulitis Side effects of treatment? @ -No Exacerbation, Progression, or Severe Exacerbation? @ -No Poses a threat to life or bodily function? How? (Chest pain, [place], [place], pneumonia, PE, COPD, DKA, ARF, appy, cholecystitis, CVA, Diverticulitis, Homicidal, Suicidal, threat to staff... and all critical care pts) @ -yes - Lab Data Result diagrams: 06/07/25 08:59 06/07/25 08:59 Lab Results 06/07/25 06/07/25 06/07/25 Range/Units 08:59 08:59 08:59 WBC 9.65 (4.50-10.00) 10*3/uL RBC 4.02 L (4.40-5.60) 10*6/uL Hgb 13.7 (13.0-17.0) g/dL Hct 39.8 (39.6-50.0) % MCV 99.0 H (80.0-97.0) fL MCH 34.1 H (27.0-32.0) pg MCHC 34.4 (32.0-37.0) g/dL Plt Count 162 (140-440) 10*3/uL MPV 9.9 (9.5-12.2) fL Immature Gran % (Auto) 0.4 % Neutrophils % 76.5 % Lymphocytes % 12.2 % Monocytes % 10.3 % Eosinophils % 0.3 % Basophils % 0.3 % Immature Gran # 0.04 (0.00-0.04) 10*3/uL Neutrophils # 7.38 (1.80-7.70) 10*3/uL Lymphocytes # 1.18 (0.90-5.00) 10*3/uL Monocytes # 0.99 (0.20-1.00) 10*3/uL Eosinophils # 0.03 L (0.04-0.35) 10*3/uL Basophils # 0.03 (0.00-0.10) 10*3/uL PT 11.1 (10.0-12.5) sec INR 1.0 (<1.2) APTT 23.1 (22.0-30.0) sec Sodium 137 (137-145) mmol/L Potassium 4.1 (3.5-5.1) mmol/L Chloride 104 (98-107) mmol/L Carbon Dioxide 24 (22-30) mmol/L Anion Gap 9 mmol/L BUN 20 (9-20) mg/dL Creatinine 0.87 (0.66-1.25) mg/dL Est GFR (CKD-EPI)AfAm >90 (>60 ml/min/1.73 sqM) Est GFR (CKD-EPI)NonAf 82 (>60 ml/min/1.73 sqM) Glucose 145 H (74-99) mg/dL Plasma Lactic Acid Rajeev (0.7-2.0) mmol/L Calcium 9.6 (8.4-10.2) mg/dL Magnesium 1.8 (1.6-2.3) mg/dL Total Bilirubin 1.4 H (0.2-1.3) mg/dL AST 22 (17-59) U/L ALT 15 (4-49) U/L Alkaline Phosphatase 34 L (38-126) U/L Total Protein 6.5 (6.3-8.2) g/dL Albumin 4.0 (3.5-5.0) g/dL 06/07/25 Range/Units 08:59 WBC (4.50-10.00) 10*3/uL RBC (4.40-5.60) 10*6/uL Hgb (13.0-17.0) g/dL Hct (39.6-50.0) % MCV (80.0-97.0) fL MCH (27.0-32.0) pg MCHC (32.0-37.0) g/dL Plt Count (140-440) 10*3/uL MPV (9.5-12.2) fL Immature Gran % (Auto) % Neutrophils % % Lymphocytes % % Monocytes % % Eosinophils % % Basophils % % Immature Gran # (0.00-0.04) 10*3/uL Neutrophils # (1.80-7.70) 10*3/uL Lymphocytes # (0.90-5.00) 10*3/uL Monocytes # (0.20-1.00) 10*3/uL Eosinophils # (0.04-0.35) 10*3/uL Basophils # (0.00-0.10) 10*3/uL PT (10.0-12.5) sec INR (<1.2) APTT (22.0-30.0) sec Sodium (137-145) mmol/L Potassium (3.5-5.1) mmol/L Chloride (98-107) mmol/L Carbon Dioxide (22-30) mmol/L Anion Gap mmol/L BUN (9-20) mg/dL Creatinine (0.66-1.25) mg/dL Est GFR (CKD-EPI)AfAm (>60 ml/min/1.73 sqM) Est GFR (CKD-EPI)NonAf (>60 ml/min/1.73 sqM) Glucose (74-99) mg/dL Plasma Lactic Acid Rajeev 1.5 (0.7-2.0) mmol/L Calcium (8.4-10.2) mg/dL Magnesium (1.6-2.3) mg/dL Total Bilirubin (0.2-1.3) mg/dL AST (17-59) U/L ALT (4-49) U/L Alkaline Phosphatase (38-126) U/L Total Protein (6.3-8.2) g/dL Albumin (3.5-5.0) g/dL Disposition Clinical Impression: Facial cellulitis Disposition: ADMITTED IP TO THIS [facility] Condition: Fair Referrals: Flex Hanks DO [Primary Care Provider] - 1-2 days Decision Time: 10:57
[2025-06-07] MEDS: AMPICILLIN-SULBACTAM 3 GM in SODIUM CHLORIDE 0.9% 100 ML IVPB SCH (09:02)
[2025-06-07 09:33] LABS: Basophils # (A) 0.03 10*3/uL (0.00-0.10); Basophils % (A) 0.3 %; Eosinophils # (A) 0.03 10*3/uL (0.04-0.35); Eosinophils % (A) 0.3 %; HCT 39.8 % (39.6-50.0); HGB 13.7 g/dL (13.0-17.0); Lymphocytes # (A) 1.18 10*3/uL (0.90-5.00); Lymphocytes % (A) 12.2 %; MCH 34.1 pg (27.0-32.0); MCHC 34.4 g/dL (32.0-37.0); MCV 99.0 fL (80.0-97.0); Monocytes # (A) 0.99 10*3/uL (0.20-1.00); Monocytes % (A) 10.3 %; Neutrophils # (A) 7.38 10*3/uL (1.80-7.70); Neutrophils % (A) 76.5 %; Platelet Count 162 10*3/uL (140-440); RBC 4.02 10*6/uL (4.40-5.60); RDW 12.9 % (11.5-14.5); WBC 9.65 10*3/uL (4.50-10.00)
[2025-06-07 09:47] LABS: INR 1.0 (<1.2); Partial Thromboplastin Time 23.1 sec (22.0-30.0); Prothrombin Time 11.1 sec (10.0-12.5)
[2025-06-07 09:54] LABS: ALT 15 U/L (4-49); AST 22 U/L (17-59); African American GFR (CKD) >90 (>60 ml/min/1.73 sqM); Albumin 4.0 g/dL (3.5-5.0); Alkaline Phosphatase 34 U/L (38-126); Anion Gap 9 mmol/L; Blood Urea Nitrogen 20 mg/dL (9-20); Calcium 9.6 mg/dL (8.4-10.2); Carbon Dioxide 24 mmol/L (22-30); Chloride 104 mmol/L (98-107); Glucose 145 mg/dL (74-99); Magnesium 1.8 mg/dL (1.6-2.3); Non-African American GFR(CKD) 82 (>60 ml/min/1.73 sqM); Potassium 4.1 mmol/L (3.5-5.1); Sodium 137 mmol/L (137-145); Total Protein 6.5 g/dL (6.3-8.2)
--- NOTE | 2025-06-07 10:27 | CT ---
EXAMINATION TYPE: CT soft tissue neck w con DATE OF EXAM: 06/07/2025 10:12 AM COMPARISON: None CLINICAL INDICATION: Male, 79 years old with history of swelling s/p dental extraction; PHH, Swelling s/p dental extraction on Friday, difficulty swallowing. TECHNIQUE: CT scan of the neck is performed following with IV Contrast, patient injected with 100 ml mL of Isovu e 300. Axial images are obtained, coronal and sagittal reformatted images are reviewed. CT DLP: 281.8 mGycm Automated exposure control for dose reduction was used. FINDINGS: Dental artifact limits portions of the exam. Airway: No gross abnormality seen. Parotid/submandibular glands: No gross abnormality seen. Carotid/Vascular Structures: Subcutaneous varices\collateral vessels noted posteriorly . Visualized v asculature enhances normally. Osseous Structures: Multilevel hypertrophic and degenerative change spine. Suspect multilevel foramin al encroachment and canal stenosis C5-C6 Other: There is an implantable cardiac device and anterior left chest. Emphysematous changes. Lung fi elds clear. Mild subcutaneous edema anterior to the mandible. IMPRESSION: 1. Exam limited by dental artifact. Subcutaneous edema anterior to the mandible correlate for nonspe cific edema versus cellulitis. 2. Airway appears patent with no significant narrowing. No diagnostic evidence of abscess. [facility], , 06/07/2025 10:25 AM
[2025-06-07] MEDS ORDERED: NALOXONE 0.4 MG/ML 1 ML VIAL IV PRN (10:54)
[2025-06-07] MEDS: SODIUM CHLORIDE 0.9% 1,000 ML IV SCH (11:12)
[2025-06-07] MEDS ORDERED: HYDROcodone/APAP 5-325MG 1 EACH TAB PO PRN (15:51)
[2025-06-07] MEDS ORDERED: HYDROmorphone 0.5 MG/0.5 ML SYRINGE IVP PRN (15:51)
[2025-06-07] MEDS ORDERED: Acetaminophen-Codeine 300-30mg TAB PO PRN (15:52)
[2025-06-07] MEDS: CHLORHEXIDINE GLUCONATE 15 ML CUP MUCOUS MEM SCH (17:06)
--- NOTE | 2025-06-07 22:20 | P.CONS ---
History of Present Illness - Reason for Consult Consult date: 06/07/25 Dental infection Requesting physician: Tyler Mccarty - Chief Complaint Left-sided mandible pain and swelling and redness x 2 days - History of Present Illness Patient is a 79-year-old male with a past medical history significant for VA hypertension hyperlipidemia patient recently did have extraction of tooth #17 on Friday that is 4 days prior to presentation to the hospital patient apparently was on Eliquis which was put on hold subsequent has been to be r estarted on Friday patient mention he took it on Friday he woke up yesterday morning with increasing pain and swelling to the left side of the jaw for the patient was seen by his dental surgeon he was started on Augmentin patient mention he has taken about 3 doses and went to see the surgeon today and was advised to go to the hospital for need for IV antibiotic therapy patient denies high-grade fever or any chills has been complaining of pain and swelling to the left side of the jaw that has been extending down to the throat area with associated swelling and redness patient denies any difficulty breathing denies having any nausea vomiting abdominal pain or diarrhea on presentation to the ospital patient was afebrile no fever have been called subsequently patient was not tachycardic hypotensive or hypoxic he did have a white count 9.65 creatinine 0.87 electrolytes are normal bilirubin is 1.4 rest of the liver enzymes are normal patient did have soft tissue neck CT subcutaneous edema anterior to the mandible correlate for nonspecific edema versus cellulitis did not mention any abscess patient was started on Unasyn infectious disease was consulted regarding infection Review of Systems Positive point and negatives has been mentioned in the HPI, complete review of systems was performed and all other systems are negative Past Medical History Past Medical History: Hyperlipidemia, Hypertension, Myocardial Infarction ([place]) Last Myocardial Infarction Date:: march 2021 History of Any Multi-Drug Resistant Organisms: None Reported Past Surgical History: Appendectomy, Back Surgery, Heart Catheterization With Stent, Pacemaker Additional Past Surgical History / Comment(s): aicd Past Anesthesia/Blood Transfusion Reactions: No Reported Reaction Date of Last Stent Placement:: march 2021 Type of Cardiac Device: AICD Device Placement Date:: march 2021 Past Psychological History: No Psychological Hx Reported Smoking Status: Never smoker Past Alcohol Use History: Occasional Past Drug Use History: None Reported - Past Family History Father Family Medical History: Myocardial Infarction ([place]) Medications and Allergies Home Medications Medication Instructions Recorded Confirmed Type Aspirin 81 mg PO DAILY #90 chew 04/04/21 06/07/25 Rx Atorvastatin [Lipitor] 80 mg PO HS #90 tab 04/04/21 06/07/25 Rx Losartan [Cozaar] 25 mg PO DAILY 08/12/21 06/07/25 History Metoprolol Tartrate [Lopressor] 25 mg PO BID 08/12/21 06/07/25 History Nitroglycerin Sl Tabs [Nitrostat] 0.4 mg SL Q5M PRN 08/12/21 06/07/25 History Spironolactone [Aldactone] 25 mg PO DAILY 08/12/21 06/07/25 History Acetaminophen-Codeine 300-30mg 1 tab PO TID PRN 06/07/25 06/07/25 History [Tylenol w/codeine #3] Amoxicillin 875 mg PO Q12HR 06/07/25 06/07/25 History Apixaban [Eliquis] 5 mg PO BID 06/07/25 06/07/25 History Ascorbic Acid [Vitamin C] 500 mg PO DAILY 06/07/25 06/07/25 History Chlorhexidine Gluconate [Peridex] 15 ml PO TID 06/07/25 06/07/25 History Cholecalciferol [Vitamin D3 (25 25 mcg PO DAILY 06/07/25 06/07/25 History Mcg = 1000 Iu)] Allergies Allergy/AdvReac Type Severity Reaction Status Date / Time No Known Allergies Allergy Verified 06/07/25 11:10 Physical Exam Vitals: Vital Signs Temp Pulse Resp BP Pulse Ox 06/07/25 12:55 63 18 118/76 98 06/07/25 10:57 64 16 123/70 97 06/07/25 08:27 98.3 F 95 16 125/74 97 Intake and Output 06/06/25 06/07/25 06/07/25 22:59 06:59 14:59 Other: Weight 79.379 kg GENERAL DESCRIPTION: Elderly male lying in bed, no distress. No tachypnea or accessory muscle of respiration use. HEENT: Shows Pallor , no scleral icterus. Oral mucous membrane is dry. Did have extensive swelling and redness of the left lower jaw extending to the neck area NECK: Trachea central, no thyromegaly. LUNGS: Unlabored breathing. Clear to auscultation anteriorly. No wheeze or crackle. HEART: S1, S2, regular rate and rhythm. No loud murmur ABDOMEN: Soft, no tenderness , guarding or rigidity, no organomegaly EXTREMITIES: No edema of feet. SKIN: No rash, no masses palpable. NEUROLOGICAL: The patient is awake, alert, oriented x3, mood and affect normal. Results CBC & Chem 7: 06/07/25 08:59 06/07/25 08:59 Labs: Abnormal Lab Results - Last 24 Hours (Table) 06/07/25 06/07/25 Range/Units 08:59 08:59 RBC 4.02 L (4.40-5.60) 10*6/uL MCV 99.0 H (80.0-97.0) fL MCH 34.1 H (27.0-32.0) pg Eosinophils # 0.03 L (0.04-0.35) 10*3/uL Glucose 145 H (74-99) mg/dL Total Bilirubin 1.4 H (0.2-1.3) mg/dL Alkaline Phosphatase 34 L (38-126) U/L Assessment and Plan (1) Dental infection Current Visit: Yes Status: Acute Code(s): K04.7 - PERIAPICAL ABSCESS WITHOUT SINUS SNOMED Code(s): 133362544 (2) Facial cellulitis Current Visit: Yes Status: Acute Code(s): L03.211 - CELLULITIS OF FACE SNOMED Code(s): 842906934 Plan: 1patient with a left-sided facial and neck area cellulitis source is likely left lower jaw dental extraction site infection versus hematoma the patient has been on Eliquis that was restarted after his dental extraction 2-patient was empirically treated with Unasyn 3 g every 6 hours while waiting for the workup to be completed Multiple question concern answered We will follow on clinical condition and cultures to further adjust medication if needed Thank you for this consultation we will follow the patient along with you Dictation was produced using [employer] software. please excuse any grammatical, word or spelling errors. Time with Patient: Greater than 30
[2025-06-07] MEDS: ATORVASTATIN 80 MG TAB PO SCH (22:21)
[2025-06-07] MEDS: METOPROLOL TARTRATE 25 MG TAB PO SCH (22:21)
--- NOTE | 2025-06-08 01:35 | HP ---
HISTORY AND PHYSICAL CHIEF COMPLAINTS: Pain and swelling of the left lower cheek. HISTORY OF PRESENT ILLNESS: This 79-year-old gentleman with a past medical history of multiple medical problems including CAD stent, was on Eliquis. The patient apparently had dental extraction tooth #17 and the patient is started back on Eliquis, but the patient is subsequently complaining of swelling of the left jaw pain and the patient admitted for further evaluation and treatment. The hemoglobin was found to be 13.7 and CAT scan of the neck showed subcutaneous edema and cellulitis. There is no history of any fever, rigors, or chills at this time. PAST MEDICAL HISTORY: Hypertension, myocardial infarction, CAD stent. Rest of the history and chart is also noted. HOME MEDICATIONS: Reviewed include vitamin D3. Doses and rest of medications are reviewed. ALLERGIES: NONE. FAMILY HISTORY: History of myocardial infarction. SOCIAL HISTORY: No history of smoking, no alcohol. REVIEW OF SYSTEMS: A 14-point review of systems negative except as mentioned earlier. PHYSICAL EXAMINATION: VITAL SIGNS: Pulse is 63, blood pressure 118/76, respirations 18. HEENT: Conjunctivae normal. NECK: No jugular venous distention. CARDIOVASCULAR: S1, S2 muffled. RESPIRATION: Breath sounds diminished at the bases. ABDOMEN: Soft, nontender. significant pain and swelling and erythema and tenderness in the left lower jaw area present. NERVOUS SYSTEM: No focal deficit. LABORATORY DATA: Reviewed. ASSESSMENT: 1. Acute cellulitis and possible early dental abscess on the left lower jaw. 2. Status post extraction of the tooth #17. 3. Hypertension. 4. Hyperlipidemia. 5. History of myocardial infarction. 6. History of CAD stent. 7. History AICD. 8. Multiple complex medical issues. RECOMMENDATIONS AND DISCUSSION: I recommend to continue current management and recommend cardiology consultation, dental consultation, empiric antibiotics will be ordered. Prognosis extremely guarded. Further recommendations to follow. The CT scan did not show any acute abnormality or hematoma, however, we will continue to monitor. See orders for details. MMODL / IJN: [id number] / MTDD
[2025-06-08 07:56] LABS: Basophils # (A) 0.05 X 10*3/uL (0.00-0.10); Basophils % (A) 0.6 %; Eosinophils # (A) 0.16 X 10*3/uL (0.04-0.35); Eosinophils % (A) 1.9 %; HCT 38.4 % (39.6-50.0); HGB 12.6 g/dL (13.0-17.0); Immature Grans, Automated 0.20 %; Lymphocytes # (A) 1.57 X 10*3/uL (0.90-5.00); Lymphocytes % (A) 18.5 %; MCH 33.2 pg (27.0-32.0); MCHC 32.8 g/dL (32.0-37.0); MCV 101.3 FL (80.0-97.0); Monocytes # (A) 1.05 X 10*3/uL (0.20-1.00); Monocytes % (A) 12.4 %; NRBC Per 100 WBC 0 X 10*3/uL (0.00-0.01); Neutrophils # (A) 5.64 X 10*3/uL (1.80-7.70); Neutrophils % (A) 66.4 %; Platelet Count 167 X 10*3/uL (140-440); RBC 3.79 X 10*6/uL (4.40-5.60); RDW 13.1 % (11.5-14.5); WBC 8.49 X 10*3/uL (4.50-10.00)
[2025-06-08 08:11] LABS: Anion Gap 10.20 mmol/L (4.00-12.00); BUN/Creat Ratio 14.11 Ratio (12.00-20.00); Blood Urea Nitrogen 12.7 mg/dL (9.0-27.0); Carbon Dioxide 24.8 mmol/L (21.6-31.8); Chloride 105 mmol/L (96-109); Glucose 100 mg/dL (70-110); Potassium 4.3 mmol/L (3.5-5.5); Sodium 140 mmol/L (135-145)
[2025-06-08 08:12] LABS: Calcium 8.7 mg/dL (8.7-10.3)
[2025-06-08] MEDS: LOSARTAN 25 MG TAB PO SCH (09:02)
[2025-06-08] MEDS: SPIRONOLACTONE 25 MG TAB PO SCH (09:02)
[2025-06-08] MEDS: ASPIRIN 81 MG PO SCH (09:02)
[2025-06-08] MEDS: CHOLECALCIFEROL 25 MCG (1000 IU) TABLET PO SCH (09:02)
--- NOTE | 2025-06-08 10:22 | P.CRDCN ---
History of Present Illness History of present illness: HISTORY OF PRESENT ILLNESS: This is a 79-year-old male with a past medical history significant for coronary artery disease with previous stenting, ischemic cardiomyopathy, AICD implantati on, hypertension, hyperlipidemia, and paroxysmal atrial fibrillation. Patient follows in the office with Dr. Orellana. We have been asked to see the patient in consultation for recommendations for Eliquis. Patient examined at the bedside. Patient states on Friday he had blood tooth extracted on the left side by Dr. Hagan. He states that he held his Eliquis for 3 days prior to this procedure. He states he was doing okay on Friday and Friday but then Friday night he started to have a lot of bleeding. He states that he woke up on Friday and his face was really swollen so he went to go see Dr. Hagan and was prescribed antibiotics. He states on Friday the swelling got worse and he saw Dr. Hagan again who directed him to come to the emergency room. He states that he went back on his Eliquis on Friday and only took 1 dose. He does continue to report some bleeding but significantly improved. He also reports that his neck was significantly swollen yesterday and is a lot better today. He is without complaints of chest pain or shortness of breath. Vital signs are stable. DIAGNOSTICS: - EKG reveals sinus mechanism with no signs of acute ischemia. Right bundle branch block.. - Laboratory data: WBC 8.49. Hemoglobin 12.6. Platelet count 167. Sodium 140. Potassium 4.3. BUN 12.7. Magnesium 1.8. - Current home cardiac medications include Aldactone 25 mg daily, Lipitor 80 mg at night, losartan 25 mg daily, metoprolol tartrate 25 mg twice a day, Eliquis 5 mg twice a day, aspirin 81 mg daily. - Most recent echocardiogram obtained in March 2025 in the office reveals ejection fraction 30 to 35%, apex akinetic, large hypokinetic area of the anterior, anterior lateral, inferior lateral and inferior wall from the base to the mid wall. Small akinetic area of the anterior septal wall from the base to the mid wall. Small hypokinetic area of inferior septal wall at the base. Small akinetic area of inferior septal wall at the mid wall. Moderate aortic regurgitation, moderate to severe mitral regurgitation, moderate to severe tricuspid regurgitation.. - Cardiac catheterization history: March 2021 with stenting of the proximal LAD and mid LAD and aspiration thrombectomy of LAD REVIEW OF SYSTEMS: At the time of my exam: CONSTITUTIONAL: Denies fever or chills. HEENT: Denies blurred vision, vision changes, or eye pain. Denies hemoptysis CARDIOVASCULAR: Denies chest pain. Denies orthopnea. Denies PND. Denies palpitations RESPIRATORY: Denies shortness of breath. GASTROINTESTINAL: Denies abdominal pain. Denies nausea or vomiting. HEMATOLOGIC: Denies bleeding disorders. GENITOURINARY: Denies any blood in urine. SKIN: Denies pruitis. Denies rash. PHYSICAL EXAM: VITAL SIGNS: Reviewed. GENERAL: Well-developed in no acute distress. HEENT: Head is normocephalic. Pupils are equal, round. Sclerae anicteric. Mucous membranes of the mouth are moist. Neck supple. No JVD or thyromegaly LUNGS: Respirations even and unlabored. Lungs essentially clear to auscultation bilaterally. HEART: Regular rate and rhythm. S1 and S2 heard. ABDOMEN: Soft. Nondistended. Nontender. EXTREMITIES: Normal range of motion. No clubbing or cyanosis. Peripheral pulses intact. No lower extremity edema NEUROLOGIC: Awake and alert. Oriented x 3. ASSESSMENT: Facial swelling/cellulitis status post left sided tooth extraction Paroxysmal atrial fibrillation, on Eliquis outpatient Coronary artery disease with previous stenting of the LAD, 2020 Ischemic cardiomyopathy, EF 30 to 35% History of AICD implantation, 2020 Valvular heart disease including moderate AI, moderate to severe MR, moderate to severe TR Hypertension Hyperlipidemia Obesity: BMI 30.0 PLAN: No need to repeat echocardiogram as this was performed in the office in March 2025 Resume home cardiac medications including aspirin May continue to hold Eliquis for 3 to 4 days and then resume Continue antibiotics per infectious disease Further recommendations pending patient course Nurse practitioner note has been reviewed by physician. Signing provider agrees with the documented findings, assessment, and plan of care documented by WINE MAKER as a scribe. 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 Last Myocardial Infarction Date:: march 2021 History of Any Multi-Drug Resistant Organisms: None Reported Past Surgical History: Appendectomy, Back Surgery, Heart Catheterization With Stent, Pacemaker Additional Past Surgical History / Comment(s): aicd Past Anesthesia/Blood Transfusion Reactions: No Reported Reaction Date of Last Stent Placement:: march 2021 Type of Cardiac Device: AICD Device Placement Date:: march 2021 Past Psychological History: No Psychological Hx Reported Smoking Status: Never smoker Past Alcohol Use History: Occasional Past Drug Use History: None Reported - Past Family History Father Family Medical History: Myocardial Infarction ([place]) Medications and Allergies Home Medications Medication Instructions Recorded Confirmed Type Aspirin 81 mg PO DAILY #90 chew 04/04/21 06/07/25 Rx Atorvastatin [Lipitor] 80 mg PO HS #90 tab 04/04/21 06/07/25 Rx Losartan [Cozaar] 25 mg PO DAILY 08/12/21 06/07/25 History Metoprolol Tartrate [Lopressor] 25 mg PO BID 08/12/21 06/07/25 History Nitroglycerin Sl Tabs [Nitrostat] 0.4 mg SL Q5M PRN 08/12/21 06/07/25 History Spironolactone [Aldactone] 25 mg PO DAILY 08/12/21 06/07/25 History Acetaminophen-Codeine 300-30mg 1 tab PO TID PRN 06/07/25 06/07/25 History [Tylenol w/codeine #3] Amoxicillin 875 mg PO Q12HR 06/07/25 06/07/25 History Apixaban [Eliquis] 5 mg PO BID 06/07/25 06/07/25 History Ascorbic Acid [Vitamin C] 500 mg PO DAILY 06/07/25 06/07/25 History Chlorhexidine Gluconate [Peridex] 15 ml PO TID 06/07/25 06/07/25 History Cholecalciferol [Vitamin D3 (25 25 mcg PO DAILY 06/07/25 06/07/25 History Mcg = 1000 Iu)] Allergies Allergy/AdvReac Type Severity Reaction Status Date / Time No Known Allergies Allergy Verified 06/07/25 11:10 Physical Exam Vitals: Vital Signs Temp Pulse Pulse Resp BP BP Pulse Ox 06/08/25 07:00 98.2 F 71 17 132/78 97 06/08/25 02:20 98.4 F 73 17 111/59 95 06/07/25 22:12 98.5 F 72 18 132/80 98 06/07/25 21:14 97.5 F L 83 16 136/83 97 06/07/25 18:23 98.7 F 74 16 125/67 97 06/07/25 16:04 71 19 123/60 95 06/07/25 12:55 63 18 118/76 98 06/07/25 10:57 64 16 123/70 97 Intake and Output 06/07/25 06/08/25 06/08/25 22:59 06:59 14:59 Other: Voiding Method Toilet Toilet # Voids 1 2 Weight 79.379 kg Results 06/08/25 04:50 06/08/25 04:50 CBC 06/08/25 Range/Units 04:50 WBC 8.49 (4.50-10.00) X 10*3/uL RBC 3.79 L (4.40-5.60) X 10*6/uL Hgb 12.6 L (13.0-17.0) g/dL Hct 38.4 L (39.6-50.0) % Plt Count 167 (140-440) X 10*3/uL Comprehensive Metabolic Panel 06/08/25 Range/Units 04:50 Sodium 140 (135-145) mmol/L Potassium 4.3 (3.5-5.5) mmol/L Chloride 105 (96-109) mmol/L Carbon Dioxide 24.8 (21.6-31.8) mmol/L BUN 12.7 (9.0-27.0) mg/dL Creatinine 0.9 (0.6-1.5) mg/dL Glucose 100 (70-110) mg/dL Calcium 8.7 (8.7-10.3) mg/dL Current Medications Generic Name Dose Route Start Last Admin Trade Name Freq PRN Reason Stop Dose Admin Acetaminophen 650 mg 06/07/25 10:54 Acetaminophen Tab 325 Mg Tab PO Q6HR PRN Mild Pain or Fever > 100.5 Acetaminophen/Codeine Phosphate 1 each 06/07/25 15:52 Acetaminophen-Codeine 300-30mg Tab PO TID PRN Pain Hydrocodone Bitart/Acetaminophen 1 each 06/07/25 15:51 Hydrocodone/Apap 5-325mg 1 Each Tab PO Q6HR PRN Pain Aspirin 81 mg 06/08/25 09:00 06/08/25 09:02 Aspirin 81 Mg PO 81 mg DAILY MARIANA Administration Atorvastatin Calcium 80 mg 06/07/25 21:00 06/07/25 22:21 Atorvastatin 80 Mg Tab PO 80 mg HS MARIANA Administration Chlorhexidine Gluconate 15 ml 06/07/25 16:00 06/08/25 09:02 Chlorhexidine Gluconate 15 Ml Cup MUCOUS MEM 15 ml TID MARIANA Administration Cholecalciferol 25 mcg 06/08/25 09:00 06/08/25 09:02 Cholecalciferol 25 Mcg (1000 Iu) Tablet PO 25 mcg DAILY MARIANA Administration Hydromorphone HCl 0.5 mg 06/07/25 15:51 Hydromorphone 0.5 Mg/0.5 Ml Syringe IVP Q4HR PRN Severe Pain (Scale 7 to 10) Ampicillin Sodium/Sulbactam 100 mls @ 200 mls/hr 06/07/25 09:00 06/08/25 09:02 Sodium 3 gm/ Sodium Chloride IVPB 200 mls/hr Q6H MARIANA Administration Protocol Sodium Chloride 1,000 mls @ 75 mls/hr 06/07/25 11:00 06/08/25 09:05 Saline 0.9% IV 75 mls/hr .[id number] MARIANA Administration Losartan Potassium 25 mg 06/08/25 09:00 06/08/25 09:02 Losartan 25 Mg Tab PO 25 mg DAILY MARIANA Administration Metoprolol Tartrate 25 mg 06/07/25 21:00 06/08/25 09:02 Metoprolol Tartrate 25 Mg Tab PO 25 mg BID MARIANA Administration Naloxone HCl 0.2 mg 06/07/25 10:54 Naloxone 0.4 Mg/Ml 1 Ml Vial IV Q2M PRN Opioid Reversal Spironolactone 25 mg 06/08/25 09:00 06/08/25 09:02 Spironolactone 25 Mg Tab PO 25 mg DAILY MARIANA Administration Intake and Output 06/07/25 06/08/25 06/08/25 22:59 06:59 14:59 Other: Voiding Method Toilet Toilet # Voids 1 2 Weight 79.379 kg 06/08/25 04:50 06/08/25 04:50
--- NOTE | 2025-06-08 15:22 | P.PN ---
Subjective Progress Note Date: 06/08/25 Principal diagnosis: Reason for follow-up is left lower jaw abscess cellulitis Patient is a 79-year-old male with a past medical history significant for [place] hypertension hyperlipidemia patient recently did have extraction of tooth #17 on Friday that is 4 days prior to presentation to the hospital presented to hospital with significant swelling redness to the left lower jaw concerning for abscess/cellulitis. On today's evaluation that is 06/08/2025,the patient denies any fever or any chills, patient is breathing comfortably on room air, the patient denies chest pain shortness of breath and no significant cough, patient denies abdominal pain, no nausea vomiting or diarrhea. Swelling redness to the left lower jaw has slightly decreased in intensity. Patient white count is 8.49, creatinine 0.9 Objective - Vital Signs Vital signs: Vital Signs Temp 99.9 F H 06/08/25 14:35 Pulse 68 06/08/25 14:35 Resp 18 06/08/25 14:35 BP 111/72 06/08/25 14:35 Pulse Ox 97 06/08/25 14:35 FiO2 Intake & Output 06/07/25 06/08/25 06/08/25 18:59 06:59 18:59 Weight 79.379 kg 79.379 kg Other: Voiding Method Toilet Toilet # Voids 2 3 - Exam GENERAL DESCRIPTION: An elderly male lying in bed in no distress HEENT: Left lower jaw and neck area swelling redness slightly decreased RESPIRATORY SYSTEM: Unlabored breathing , decreased breath sounds at bases HEART: S1 S2 regular rate and rhythm , ABDOMEN: Soft , no tenderness EXTREMITIES: No edema feet - Labs CBC & Chem 7: 06/08/25 04:50 06/08/25 04:50 Labs: Abnormal Lab Results - Last 24 Hours (Table) 06/08/25 Range/Units 04:50 RBC 3.79 L (4.40-5.60) X 10*6/uL Hgb 12.6 L (13.0-17.0) g/dL Hct 38.4 L (39.6-50.0) % MCV 101.3 H (80.0-97.0) FL MCH 33.2 H (27.0-32.0) pg Monocytes # 1.05 H (0.20-1.00) X 10*3/uL Assessment and Plan (1) Dental infection Current Visit: Yes Status: Acute Code(s): K04.7 - PERIAPICAL ABSCESS WITHOUT SINUS SNOMED Code(s): 317725402 (2) Facial cellulitis Current Visit: Yes Status: Acute Code(s): L03.211 - CELLULITIS OF FACE SNOMED Code(s): 191340983 Plan: 1patient with a left-sided facial and neck area cellulitis source is likely left lower jaw dental extraction site infection versus hematoma the patient has been on Eliquis that was restarted after his dental extraction 2-patient seem to have shown some clinical improvement we will continue with Unasyn 3 g every 6 hours while waiting for the workup to be completed Dictation was produced using [employer] dictation software. please excuse any grammatical, word or spelling errors. Time with Patient: Less than 30
[2025-06-08] MEDS: ACETAMINOPHEN TAB 325 MG TAB PO PRN (15:52)
--- NOTE | 2025-06-09 03:11 | PN ---
PROGRESS NOTE DATE OF SERVICE: 06/08/2025 SUBJECTIVE: This 79-year-old gentleman admitted with pain and swelling after dental extraction. He is being closely monitored. No chest pain. No palpitations. The patient is on anticoagulants also. PHYSICAL EXAMINATION: VITAL SIGNS: Pulse 71, blood pressure 132/70, respirations 17. CHEST: Clear to auscultation. CARDIOVASCULAR: S1, S2. ABDOMEN: Soft. SKIN: Swelling on the left lower face is rather increasing today. LABORATORY DATA: Hemoglobin 12.6. Rest of the labs are noted. ASSESSMENT: 1. Acute cellulitis with possible early dental abscess on the left lower jaw with swelling. 2. Anemia multifactorial. 3. Status post extraction of the tooth #17. 4. Hypertension. 5. Hyperlipidemia. 6. History of myocardial infarction. 7. Coronary artery disease with stent. 8. History of AICD. 9. Multiple complex medical issues. RECOMMENDATIONS: Recommend to continue current management. Continue symptomatic treatment. Repeat labs. Hold off the anticoagulants at this time and dental and cardiology consultations. Infectious disease evaluation. Further recommendations to follow. MMODL / IJN: [id number] /
[2025-06-09 11:00] LABS: Basophils # (A) 0.05 X 10*3/uL (0.00-0.10); Basophils % (A) 0.5 %; Eosinophils # (A) 0.22 X 10*3/uL (0.04-0.35); Eosinophils % (A) 2.3 %; HCT 40.5 % (39.6-50.0); HGB 13.2 g/dL (13.0-17.0); Immature Grans, Automated 0.20 %; Lymphocytes # (A) 1.49 X 10*3/uL (0.90-5.00); Lymphocytes % (A) 15.9 %; MCH 33.4 pg (27.0-32.0); MCHC 32.6 g/dL (32.0-37.0); MCV 102.5 FL (80.0-97.0); Monocytes # (A) 0.86 X 10*3/uL (0.20-1.00); Monocytes % (A) 9.2 %; NRBC Per 100 WBC 0 X 10*3/uL (0.00-0.01); Neutrophils # (A) 6.74 X 10*3/uL (1.80-7.70); Neutrophils % (A) 71.9 %; Platelet Count 184 X 10*3/uL (140-440); RBC 3.95 X 10*6/uL (4.40-5.60); RDW 12.9 % (11.5-14.5); WBC 9.38 X 10*3/uL (4.50-10.00)
[2025-06-09 11:20] LABS: Anion Gap 11.90 mmol/L (4.00-12.00); BUN/Creat Ratio 9.56 Ratio (12.00-20.00); Blood Urea Nitrogen 8.6 mg/dL (9.0-27.0); Calcium 8.7 mg/dL (8.7-10.3); Carbon Dioxide 24.1 mmol/L (21.6-31.8); Chloride 104 mmol/L (96-109); Glucose 98 mg/dL (70-110); Potassium 4.0 mmol/L (3.5-5.5); Sodium 140 mmol/L (135-145)
--- NOTE | 2025-06-09 12:58 | P.PN ---
Subjective HISTORY OF PRESENT ILLNESS: This is a 79-year-old male with a past medical history significant for coronary artery disease with previous stenting, ischemic cardiomyopathy, AICD implantation, hypertension, hyperlipidemia, and paroxysmal atrial fibrillation. Patient follows in the office with Dr. Orellana. We have been asked to see the patient in consultation for recommendations for Eliquis. Patient examined at the bedside. Patient states on Friday he had blood tooth extracted on the left side by Dr. Hagan. He states that he held his Eliquis for 3 days prior to this procedure. He states he was doing okay on Friday and Friday but then Friday night he started to have a lot of bleeding. He states that he woke up on Friday and his face was really swollen so he went to go see Dr. Hagan and was prescribed antibiotics. He states on Friday the swelling got worse and he saw Dr. Hagan again who directed him to come to the emergency room. He states that he went back on his Eliquis on Friday and only took 1 dose. He does con tinue to report some bleeding but significantly improved. He also reports that his neck was significantly swollen yesterday and is a lot better today. He is without complaints of chest pain or shortness of breath. Vital signs are stable. DIAGNOSTICS: - EKG reveals sinus mechanism with no signs of acute ischemia. Right bundle branch block.. - Laboratory data: WBC 8.49. Hemoglobin 12.6. Platelet count 167. Sodium 140. Potassium 4.3. BUN 12.7. Magnesium 1.8. - Current home cardiac medications include Aldactone 25 mg daily, Lipitor 80 mg at night, losartan 25 mg daily, metoprolol tartrate 25 mg twice a day, Eliquis 5 mg twice a day, aspirin 81 mg daily. - Most recent echocardiogram obtained in March 2025 in the office reveals ejection fraction 30 to 35%, apex akinetic, large hypokinetic area of the anterior, anterior lateral, inferior lateral and inferior wall from the base to the mid wall. Small akinetic area of the anterior septal wall from the base to the mid wall. Small hypokinetic area of inferior septal wall at the base. Small akinetic area of inferior septal wall at the mid wall. Moderate aortic regurgitation, moderate to severe mitral regurgitation, moderate to severe tricuspid regurgitation.. - Cardiac catheterization history: March 2021 with stenting of the proximal LAD and mid LAD and aspiration thrombectomy of LAD 06/09/2025 Patient examined this morning at the bedside. Patient states he has been having a lot of diarrhea from the IV antibiotics. He reports improvement in his facial swelling. He denies any chest pain or pressure. PHYSICAL EXAM: VITAL SIGNS: Reviewed. GENERAL: Well-developed in no acute distress. HEENT: Head is normocephalic. Pupils are equal, round. Sclerae anicteric. Mucous membranes of the mouth are moist. Neck supple. No JVD or thyromegaly LUNGS: Respirations even and unlabored. Lungs essentially clear to auscultation bilaterally. HEART: Regular rate and rhythm. S1 and S2 heard. ABDOMEN: Soft. Nondistended. Nontender. EXTREMITIES: Normal range of motion. No clubbing or cyanosis. Peripheral pulses intact. No lower extremity edema NEUROLOGIC: Awake and alert. Oriented x 3. ASSESSMENT: Facial swelling/cellulitis status post left sided tooth extraction Paroxysmal atrial fibrillation, on Eliquis outpatient Coronary artery disease with previous stenting of the LAD, 2020 Ischemic cardiomyopathy, EF 30 to 35% History of AICD implantation, 2020 Valvular heart disease including moderate AI, moderate to severe MR, moderate to severe TR Hypertension Hyperlipidemia Obesity: BMI 30.0 PLAN: No need to repeat echocardiogram as this was performed in the office in March 2025 Resume home cardiac medications including aspirin May continue to hold Eliquis. Patient instructed to call the office on Friday and provided update on patient condition. If patient remains stable with no further bleeding, may resume Eliquis on Friday Continue antibiotics per infectious disease Further recommendations pending patient course Nurse practitioner note has been reviewed by physician. Signing provider agrees with the documented findings, assessment, and plan of care documented by SENIOR FRONT END DEVELOPER as a scribe. Objective - Vital Signs Vital signs: Vital Signs Temp 98.7 F 06/09/25 07:00 Pulse 71 06/09/25 07:00 Resp 20 06/09/25 07:00 BP 130/80 06/09/25 07:00 Pulse Ox 98 06/09/25 07:00 FiO2 Intake & Output 06/08/25 06/09/25 06/09/25 18:59 06:59 18:59 Intake Total 360 480 Balance 360 480 Intake: Oral 360 480 Other: Voiding Method Toilet Toilet # Voids 3 3 # Bowel Movements 4 - Labs CBC & Chem 7: 06/09/25 06:01 06/09/25 06:01 Labs: Abnormal Lab Results - Last 24 Hours (Table) 06/09/25 06/09/25 Range/Units 06:01 06:01 RBC 3.95 L (4.40-5.60) X 10*6/uL MCV 102.5 H (80.0-97.0) FL MCH 33.4 H (27.0-32.0) pg BUN 8.6 L (9.0-27.0) mg/dL BUN/Creatinine Ratio 9.56 L (12.00-20.00) Ratio Microbiology - Last 24 Hours (Table) 06/07/25 08:59 Blood Culture - Preliminary Blood
--- NOTE | 2025-06-10 00:59 | PN ---
PROGRESS NOTE DATE OF SERVICE: 06/09/2025 SUBJECTIVE: This is an 79-year-old gentleman admitted with acute cellulitis and possible early dental abscess in the left lower jaw, is being closely monitored. No chest pain. No palpitation. Multiple consultants are following the patient closely. OBJECTIVE: GENERAL: On exam, the swelling persist. Alert, oriented x3. VITAL SIGNS: Pulse 65, blood pressure 117/60, respirations 18. CHEST: Clear to auscultation. CARDIOVASCULAR: S1, S2. ABDOMEN: Soft. SKIN: Face swelling present. LABORATORY DATA: Reviewed. ASSESSMENT: 1. Acute cellulitis with possible early dental abscess on the left lower jaw with swelling. 2. Possible antibiotic induced diarrhea. 3. Anemia multifactorial. 4. Status post extraction of the tooth #7. 5. Hypertension. 6. Hyperlipidemia. 7. Multiple complex medical issues. RECOMMENDATIONS: Recommend to continue current management and treatment. Otherwise continue the antibiotics. I would also recommend stool for C diff. The patient is on IV Unasyn. Guarded prognosis. If C diff is negative, Imodium may be given. MMODL / IJN: [id number] /
[2025-06-10] MEDS: LOPERAMIDE 2 MG CAP PO PRN (03:16)
[2025-06-10 08:04] VITALS: BP 115/67; PULSE 62; RESP 14; TEMP 97.8
--- NOTE | 2025-06-10 10:02 | P.PN ---
Subjective Progress Note Date: 06/10/25 This is a 79-year-old male with a past medical history significant for coronary artery disease with previous stenting, ischemic cardiomyopathy, AICD implantation, hypertension, hyperlipidemia, and paroxysmal atrial fibrillation. Patient follows in the office with Dr. Orellana. We have been asked to see the lamar armenta in consultation for recommendations for Eliquis. Patient examined at the bedside. Patient states on Friday he had blood tooth extracted on the left side by Dr. Hagan. He states that he held his Eliquis for 3 days prior to this procedure. He states he was doing okay on Friday and Friday but then Friday night he started to have a lot of bleeding. He states that he woke up on Friday and his face was really swollen so he went to go see Dr. Hagan and was prescribed antibiotics. He states on Friday the swelling got worse and he saw Dr. Hagan again who directed him to come to the emergency room. He states that he went back on his Eliquis on Friday and only took 1 dose. He does continue to report some bleeding but significantly improved. He also reports that his neck was significantly swollen yesterday and is a lot better today. He is without complaints of chest pain or shortness of breath. Vital signs are stable. DIAGNOSTICS: - EKG reveals sinus mechanism with no signs of acute ischemia. Right bundle branch block.. - Laboratory data: WBC 8.49. Hemoglobin 12.6. Platelet count 167. Sodium 140. Potassium 4.3. BUN 12.7. Magnesium 1.8. - Current home cardiac medications include Aldactone 25 mg daily, Lipitor 80 mg at night, losartan 25 mg daily, metoprolol tartrate 25 mg twice a day, Eliquis 5 mg twice a day, aspirin 81 mg daily. - Most recent echocardiogram obtained in March 2025 in the office reveals ejection fraction 30 to 35%, apex akinetic, large hypokinetic area of the anterior, anterior lateral, inferior lateral and inferior wall from the base to the mid wall. Small akinetic area of the anterior septal wall from the base to the mid wall. Small hypokinetic area of inferior septal wall at the base. Small akinetic area of inferior septal wall at the mid wall. Moderate aortic regurgitation, moderate to severe mitral regurgitation, moderate to severe tricuspid regurgitation.. - Cardiac catheterization history: March 2021 with stenting of the proximal LAD and mid LAD and aspiration thrombectomy of LAD 06/10/2025 Patient was seen and examined sitting up at the bedside. Overall he is feeling about the same. He continues to have facial pain but swelling is somewhat better. He denies any chest discomfort, palpitations, dizziness, nausea or shortness of breath. PHYSICAL EXAM: VITAL SIGNS: Reviewed. GENERAL: Well-developed in no acute distress. HEENT: Head is normocephalic. Pupils are equal, round. Sclerae anicteric. Mucous membranes of the mouth are moist. Neck supple. No JVD or thyromegaly LUNGS: Respirations even and unlabored. Lungs essentially clear to auscultation bilaterally. HEART: Regular rate and rhythm. S1 and S2 heard. ABDOMEN: Soft. Nondistended. Nontender. EXTREMITIES: Normal range of motion. No clubbing or cyanosis. Peripheral pulses intact. No lower extremity edema NEUROLOGIC: Awake and alert. Oriented x 3. ASSESSMENT: Facial swelling/cellulitis status post left sided tooth extraction Paroxysmal atrial fibrillation, on [facility] outpatient Coronary artery disease with previous stenting of the LAD, 2020 Ischemic cardiomyopathy, EF 30 to 35% History of AICD implantation, 2020 Valvular heart disease including moderate AI, moderate to severe MR, moderate to severe TR Hypertension Hyperlipidemia Obesity: BMI 30.0 PLAN: From cardiology's perspective patient may resume [facility] on June 13. He will follow-up in the office as an outpatient within a couple of weeks at this time we will follow the patient on an as needed basis. Please do not hesitate to contact us with questions. CLOTH GRADER SUPERVISOR note has been reviewed, I agree with a documented findings and plan of care. Patient was seen and examined. Objective - Vital Signs Vital signs: Vital Signs Temp 97.8 F 06/10/25 07:00 Pulse 62 06/10/25 07:00 Resp 14 06/10/25 07:00 BP 115/67 06/10/25 07:00 Pulse Ox 98 06/10/25 07:00 FiO2 Intake & Output 06/09/25 06/10/25 06/10/25 18:59 06:59 18:59 Intake Total 720 Balance 720 Intake: Oral 720 Other: Voiding Method Toilet Toilet Toilet # Voids 2 4 # Bowel Movements 1 1 - Labs CBC & Chem 7: 06/09/25 06:01 06/09/25 06:01 Labs: Abnormal Lab Results - Last 24 Hours (Table) 06/09/25 06/09/25 Range/Units 06:01 06:01 RBC 3.95 L (4.40-5.60) X 10*6/uL MCV 102.5 H (80.0-97.0) FL MCH 33.4 H (27.0-32.0) pg BUN 8.6 L (9.0-27.0) mg/dL BUN/Creatinine Ratio 9.56 L (12.00-20.00) Ratio Microbiology - Last 24 Hours (Table) 06/07/25 08:59 Blood Culture - Preliminary Blood
[2025-06-10 11:04] LABS: Basophils # (A) 0.05 X 10*3/uL (0.00-0.10); Basophils % (A) 0.6 %; Eosinophils # (A) 0.28 X 10*3/uL (0.04-0.35); Eosinophils % (A) 3.1 %; HCT 42.1 % (39.6-50.0); HGB 13.6 g/dL (13.0-17.0); Immature Grans, Automated 0.20 %; Lymphocytes # (A) 2.14 X 10*3/uL (0.90-5.00); Lymphocytes % (A) 23.8 %; MCH 33.2 pg (27.0-32.0); MCHC 32.3 g/dL (32.0-37.0); MCV 102.7 FL (80.0-97.0); Monocytes # (A) 0.68 X 10*3/uL (0.20-1.00); Monocytes % (A) 7.6 %; NRBC Per 100 WBC 0 X 10*3/uL (0.00-0.01); Neutrophils # (A) 5.83 X 10*3/uL (1.80-7.70); Neutrophils % (A) 64.7 %; Platelet Count 211 X 10*3/uL (140-440); RBC 4.10 X 10*6/uL (4.40-5.60); RDW 12.8 % (11.5-14.5); WBC 9.00 X 10*3/uL (4.50-10.00)
[2025-06-10 11:19] LABS: Anion Gap 12.10 mmol/L (4.00-12.00); BUN/Creat Ratio 13.78 Ratio (12.00-20.00); Blood Urea Nitrogen 12.4 mg/dL (9.0-27.0); Calcium 9.0 mg/dL (8.7-10.3); Carbon Dioxide 24.9 mmol/L (21.6-31.8); Chloride 103 mmol/L (96-109); Glucose 93 mg/dL (70-110); Potassium 4.1 mmol/L (3.5-5.5); Sodium 140 mmol/L (135-145)
--- NOTE | 2025-06-10 14:44 | P.PN ---
Subjective Progress Note Date: 06/09/25 Principal diagnosis: Reason for follow-up is left lower jaw abscess cellulitis Patient is a 79-year-old male with a past medical history significant for MA hypertension hyperlipidemia patient recently did have extraction of tooth #17 on Friday that is 4 days prior to presentation to the hospital presented to hospital with significant swelling redness to the left lower jaw concerning for abscess/cellulitis. On today's evaluation that is 06/09/2025,the patient remains to be afebrile, patient is on room air not requiring supplemental oxygen and mentioned breathing comfortably with no chest pain or cough.Patient denies having any nausea or vomiting, no abdominal pain, has been complaining of some diarrhea pain to the left lower jaw has decreased in intensity. Patient with close 9.38, creatinine 0.9 Objective - Vital Signs Vital signs: Vital Signs Temp 98.7 F 06/09/25 07:00 Pulse 71 06/09/25 07:00 Resp 20 06/09/25 07:00 BP 130/80 06/09/25 07:00 Pulse Ox 98 06/09/25 07:00 FiO2 Intake & Output 06/08/25 06/09/25 06/09/25 18:59 06:59 18:59 Intake Total 360 480 Balance 360 480 Intake: Oral 360 480 Other: Voiding Method Toilet Toilet # Voids 3 3 # Bowel Movements 4 - Exam GENERAL DESCRIPTION: An elderly male lying in bed in no distress HEENT: Left lower jaw and neck area swelling redness slightly decreased RESPIRATORY SYSTEM: Unlabored breathing , decreased breath sounds at bases HEART: S1 S2 regular rate and rhythm , ABDOMEN: Soft , no tenderness EXTREMITIES: No edema feet - Labs CBC & Chem 7: 06/10/25 05:49 06/10/25 05:49 Labs: Abnormal Lab Results - Last 24 Hours (Table) 06/09/25 06/09/25 Range/Units 06:01 06:01 RBC 3.95 L (4.40-5.60) X 10*6/uL MCV 102.5 H (80.0-97.0) FL MCH 33.4 H (27.0-32.0) pg BUN 8.6 L (9.0-27.0) mg/dL BUN/Creatinine Ratio 9.56 L (12.00-20.00) Ratio Microbiology - Last 24 Hours (Table) 06/07/25 08:59 Blood Culture - Preliminary Blood Assessment and Plan (1) Dental infection Status: Acute Code(s): K04.7 - PERIAPICAL ABSCESS WITHOUT SINUS SNOMED Code(s): 790502302 (2) Facial cellulitis Status: Acute Code(s): L03.211 - CELLULITIS OF FACE SNOMED Code(s): 199668151 Plan: 1patient with a left-sided facial and neck area cellulitis source is likely left lower jaw dental extraction site infection versus hematoma the patient has been on Eliquis that was restarted after his dental extraction 2-patient left lower jaw swelling denies any decrease in transit continue with the Unasyn we will waiting for the blood culture to finalize 3patient with diarrhea possible antibiotic associated encouraged to increase his probiotic and you can take it if no improvement will add Geovannaran Dictation was produced using [employer] dictation software. please excuse any gr ammatical, word or spelling errors. Time with Patient: Less than 30
--- NOTE | 2025-06-10 14:45 | P.PN ---
Subjective Progress Note Date: 06/10/25 Principal diagnosis: Reason for follow-up is left lower jaw abscess cellulitis Patient is a 79-year-old male with a past medical history significant for MS hypertension hyperlipidemia patient recently did have extraction of tooth #17 on Friday that is 4 days prior to presentation to the hospital presented to hospital with significant swelling redness to the left lower jaw concerning for abscess/cellulitis. On today's evaluation that is 06/10/2025, the patient continues to be afebrile, the patient is on room air and breathing comfortably, the Pt denies having any chest pain or cough, the patient denies having any abdominal pain no vomiting; Diarrhea Slowed down, Pain and Swelling to the Left Lower Jaw Has Decreased in Intensity. Patient White Count Is 9.0, Creatinine 0.9 Stool for C. difficile Is Negative Blood Culture Negative Objective - Vital Signs Vital signs: Vital Signs Temp 97.8 F 06/10/25 07:00 Pulse 62 06/10/25 07:00 Resp 14 06/10/25 07:00 BP 115/67 06/10/25 07:00 Pulse Ox 98 06/10/25 07:00 FiO2 Intake & Output 06/09/25 06/10/25 06/10/25 18:59 06:59 18:59 Intake Total 720 Balance 720 Intake: Oral 720 Other: Voiding Method Toilet Toilet Toilet # Voids 2 4 # Bowel Movements 1 1 - Exam GENERAL DESCRIPTION: An elderly male lying in bed in no distress HEENT: Left lower jaw and neck area swelling redness slightly decreased RESPIRATORY SYSTEM: Unlabored breathing , decreased breath sounds at bases HEART: S1 S2 regular rate and rhythm , ABDOMEN: Soft , no tenderness EXTREMITIES: No edema feet - Labs CBC & Chem 7: 06/10/25 05:49 06/10/25 05:49 Labs: Abnormal Lab Results - Last 24 Hours (Table) 06/10/25 06/10/25 Range/Units 05:49 05:49 RBC 4.10 L (4.40-5.60) X 10*6/uL MCV 102.7 H (80.0-97.0) FL MCH 33.2 H (27.0-32.0) pg Anion Gap 12.10 H (4.00-12.00) mmol/L Microbiology - Last 24 Hours (Table) 06/07/25 08:59 Blood Culture - Preliminary Blood Assessment and Plan (1) Dental infection Status: Acute Code(s): K04.7 - PERIAPICAL ABSCESS WITHOUT SINUS SNOMED Code(s): 903995055 (2) Facial cellulitis Status: Acute Code(s): L03.211 - CELLULITIS OF FACE SNOMED Code(s): 734051156 (3) Diarrhea Status: Acute Code(s): R19.7 - DIARRHEA, UNSPECIFIED SNOMED Code(s): 73499342 Plan: 1patient with a left-sided facial and neck area cellulitis source is likely left lower jaw dental extraction site infection versus hematoma the patient has been on Eliquis that was restarted after his dental extraction 2-patient left lower jaw swelling denies any decrease in intensity and has received adequate Unasyn blood culture have been negative 3patient with diarrhea antibiotic associated hopefully improved with discontinuation of IV antibiotic will consider 10-day course of oral Augmentin on discharge discussed with STOCK HOUSE WORKER for admitting team Dictation was produced using [employer] dictation software. please excuse any grammatical, word or spelling errors. Time with Patient: Less than 30
--- NOTE | 2025-06-12 15:07 | P.DS ---
Providers Date of admission: 06/07/25 11:09 Expected date of discharge: 06/12/25 Attending physician: Pily Kumar Consults: 06/07/25 10:38 Consult Physician Routine Consulting Provider: Gokul Hagan Consult Reason/Comments: dental infection Do you want consulting provider notified?: Yes 06/07/25 12:21 Consult Physician Routine Consulting Provider: Baldomero Pollock Consult Reason/Comments: infection Do you want consulting provider notified?: Yes [facility] [place] [facility] Course: Final diagnosis Acute cellulitis with possible early dental abscess on the left lower jaw with swelling, status post dental caries extraction with oral surgeon Antibiotic induced diarrhea, C. difficile negative Anemia, multifactorial History of atrial fibrillation History of ischemic cardiomyopathy status post AICD 2020 Status post extraction of tooth #7 Hypertension Hyperlipidemia CAD BMI of 30.0 GI prophylaxis DVT prophylaxis Full code Discharge disposition Patient is being discharged in a stable condition with guarded prognosis to home. Patient will follow-up with Dr. Hanks along with oral surgeon and infectious disease outpatient. Patient will continue on oral Augmentin for another week and close outpatient follow-up. Patient has been instructed to follow-up with cardiology outpatient in the next 2 to 3 days. Total time greater than 30 minutes. Hospital course This is a 79-year-old male who was recently admitted with left facial swelling with concerns of cellulitis from a previous recent dental carry that was extracted by oral surgeon Dr. Hagan. Patient had been holding his anticoagulant for the procedure and resumed although had worsening facial swelling with concerns of hematoma versus cellulitis of that recent extraction a few days prior. Patient was evaluated by oral surgeon along with infectious disease and cardiology and will transition to oral Augmentin for another week on discharge and has been instructed to hold anticoagulation until Friday. Patient does have a follow-up appointment with oral surgeon in the outpatient setting and recommend following up with cardiology. Patient has been cleared for discharge recommending soft foods until follow-up. Please refer to consultation notes for further HPI.Currently no reports of chest pain, shortness of breath, or palpitations. Patient is afebrile. No reports of nausea or vomiting and patient is tolerating diet. Patient will be discharged home today. Guarded prognosis Physical exam: Gen: This is a 79-year-old male who is awake, alert and oriented x 3, well- developed, elderly appearing, obese HEENT: Head is atraumatic, normocephalic. Pupils equal, round. Sclerae is anicteric. Left lower jaw facial swelling hardened with tenderness on palpation NECK: Supple. No JVD. No lymphadenopathy. No thyromegaly. LUNGS: Diminished breath sounds bilaterally otherwise clear to auscultation. No wheezes or rhonchi. No intercostal retractions. HEART: S1, S2 are muffled ABDOMEN: Soft. Bowel sounds are present. No masses. No tenderness. EXTREMITIES: No pedal edema. No calf tenderness. NEUROLOGICAL: Patient is awake, alert and oriented x3. Cranial nerves 2 through 12 are grossly intact. Please refer to medication reconciliation sheet for a list of medications. The impression and plan of care has been dictated by Rosetta Ramey, Nurse Practitioner as directed. Dr. Sourav MD I have performed a history and examination and MDM of this patient, discussed the same with the dictator, and agree with the dictator's assessment and plan a s written ,documented as a scribe. Based on total visit time, I have performed more than 50% of the visit. Patient Condition at Discharge: Fair Plan - Discharge Summary New Discharge Prescriptions: No Action Atorvastatin [Lipitor] 80 mg PO HS #90 tab Metoprolol Tartrate [Lopressor] 25 mg PO BID Losartan [Cozaar] 25 mg PO DAILY Nitroglycerin Sl Tabs [Nitrostat] 0.4 mg SL Q5M PRN PRN Reason: Chest Pain Ascorbic Acid [Vitamin C] 500 mg PO DAILY Chlorhexidine Gluconate [Peridex] 15 ml PO TID Amoxicillin 875 mg PO Q12HR Cholecalciferol [Vitamin D3 (25 Mcg = 1000 Iu)] 25 mcg PO DAILY Acetaminophen-Codeine 300-30mg [Tylenol w/codeine #3] 1 tab PO TID PRN PRN Reason: Pain Aspirin 81 mg PO DAILY #90 chew Spironolactone [Aldactone] 25 mg PO DAILY Apixaban [Eliquis] 5 mg PO BID Discharge Medication List Aspirin 81 mg PO DAILY #90 chew 04/04/21 [Rx] Atorvastatin [Lipitor] 80 mg PO HS #90 tab 04/04/21 [Rx] Losartan [Cozaar] 25 mg PO DAILY 08/12/21 [History] Metoprolol Tartrate [Lopressor] 25 mg PO BID 08/12/21 [History] Nitroglycerin Sl Tabs [Nitrostat] 0.4 mg SL Q5M PRN 08/12/21 [History] Spironolactone [Aldactone] 25 mg PO DAILY 08/12/21 [History] Acetaminophen-Codeine 300-30mg [Tylenol w/codeine #3] 1 tab PO TID PRN 06/07/25 [History] Amoxicillin 875 mg PO Q12HR 06/07/25 [History] Apixaban [Eliquis] 5 mg PO BID 06/07/25 [History] Ascorbic Acid [Vitamin C] 500 mg PO DAILY 06/07/25 [History] Chlorhexidine Gluconate [Peridex] 15 ml PO TID 06/07/25 [History] Cholecalciferol [Vitamin D3 (25 Mcg = 1000 Iu)] 25 mcg PO DAILY 06/07/25 [History] Follow up Appointment(s)/Referral(s): Flex Hanks DO [Primary Care Provider] - 1-2 days Discharge Disposition: HOME SELF-CARE
== END 2025-06-10 12:50 | disposition home or self-care (01) ==
LOC: EC 08:25 → 6NMEDSUR 11:09 → OBSVTOIN 11:09 → INTOOBSV 11:09 → 6NMEDSUR 18:11 → UNDODISIN 06-10 12:50
PROVIDERS: ADMIT Hospitalist; ATTEND Hospitalist
DX: T81.49XA Infection following a procedure, other surgical site, initial encounter (principal); L03.211 Cellulitis of face; K52.1 Toxic gastroenteritis and colitis; T36.95XA Adverse effect of unspecified systemic antibiotic, initial encounter; K04.7 Periapical abscess without sinus; I08.3 Combined rheumatic disorders of mitral, aortic and tricuspid valves; I25.5 Ischemic cardiomyopathy; I48.0 Paroxysmal atrial fibrillation; I45.10 Unspecified right bundle-branch block; I25.10 Atherosclerotic heart disease of native coronary artery without angina pectoris; I10 Essential (primary) hypertension; D64.9 Anemia, unspecified; E78.5 Hyperlipidemia, unspecified; E66.9 Obesity, unspecified; Z68.30 Body mass index [BMI] 30.0-30.9, adult; I25.2 Old myocardial infarction; Z79.82 Long term (current) use of aspirin; Z79.01 Long term (current) use of anticoagulants; Z79.899 Other long term (current) drug therapy; Z95.810 Presence of automatic (implantable) cardiac defibrillator; Z95.5 Presence of coronary angioplasty implant and graft
CPT/HCPCS: 36415; 70491; 80048; 80053; 83605; 83735; 85025; 85610; 85730; 87040; 87493; 93005; 96360; 96361; 96365; 96366; 99285